=== PATIENT | female | born 1950 | race Caucasian/White ===

== ENCOUNTER → 2016-11-09 | Outpatient (CLI) | payer MEDICARE, OTHER ==
[~2016-11-09] MED LIST: ASPI81TA2 PO; BENZ-16 PO; BUPR150T89 PO; BUSP10TA3 PO; CALC-191 PO; CELE-85 PO; DIVA250T27 PO; DIVA500T55 PO; LISI-126 PO; MAGN400T6 PO; ONDA4TAB10 SL; PANT40TA32 PO; PREN-135 PO; PROP120C PO; RISP2TAB22 PO; SUCR1TAB43 PO; VIT1CAPS5 PO
== END ==
LOC: LAB 09:14
PROVIDERS: ATTEND Nurse Practitioner Psychiatric/Mental Health
DX: Z79.899 Other long term (current) drug therapy (principal)
CPT/HCPCS: 36415; 80164

== ENCOUNTER → 2016-12-07 | Outpatient (CLI) | payer MEDICARE, OTHER ==
[~2016-12-07] VITALS: Ht 160 cm; Wt 61.4 kg
[~2016-12-07] MED LIST changes: +PROM25TA7 PO; +PROMETHAZINE 25 MG INJECTION IV ONE
[2016-12-07] MEDS: NORMAL SALINE 1,000 ML IV SCH ×2 (15:30→16:41)
[2016-12-07 16:42] VITALS: Ht 160 cm; Wt 61.4 kg
[2016-12-07 16:56] VITALS: BP 144/66; PULSE 84; RESP 16; TEMP 97; O2SAT 94
== END ==
LOC: INF.THER 15:11
PROVIDERS: ATTEND Internal Medicine
DX: R11.0 Nausea (principal); E86.0 Dehydration
CPT/HCPCS: 96361; 96374; J2550; J7030

== ENCOUNTER 2016-12-10 11:39 | Emergency (ER) | payer MEDICARE, OTHER ==
[~2016-12-10] VITALS: Ht 160 cm; Wt 62.4 kg
[~2016-12-10 11:39] MED LIST changes: -PROM25TA7 PO; -PROMETHAZINE 25 MG INJECTION IV ONE
[2016-12-10 11:41] VITALS: Ht 160 cm; Wt 62.4 kg
--- OUTSIDE RECORDS SUMMARY | 2016-12-10 11:43 | XMS REPORT | Continuity of Care Document ---
Author Author [facility] Organization [facility] Address Unknown Phone Unavailable Allergies Medications Medication Packaging Start Date Stop Date Route Dosage Sig LIDOCAINE 1% MPF INJ (5ML) VL 01/05/2016 01/04/2017 ID ASDIR MIDAZOLAM 2MG/2ML INJ VL 01/05/2016 01/04/2017 IV ASDIR methylPREDNISolone ACETATE 80MG/1ML INJ VL 01/05/20162016 IT ASDIR fentaNYL 100 MCG/2ML INJ AMP 01/05/2016 01/04/2017 IV ASDIR BUPIVACAINE 0.25% INJ [10 ML] VL 01/05/2016 01/04/2017 IT ASDIR LIDOCAINE 1% MPF INJ (5ML) VL 02/15/2016 02/14/2017 ID ASDIR MIDAZOLAM 2MG/2ML INJ VL 02/15/2016 02/14/2017 IV ASDIR methylPREDNISolone ACETATE 80MG/1ML INJ VL 02/15/20162016 IT ASDIR fentaNYL 100 MCG/2ML INJ AMP 02/15/2016 02/14/2017 IV ASDIR BUPIVACAINE 0.25% INJ [10 ML] VL 02/15/2016 02/14/2017 IT ASDIR Problems Date Dx Coded Attending Type Code Diagnosis Diagnosed By 01/06/2016 MEMO REED DF M54.16 Radiculopathy, lumbar region 02/15/2016 MEMO REED DF 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 Visit Date/Time Discharge Status Pt. Type Provider Facility Loc./Unit Complaint [id number] 03/15/2016 13:48:00 03/15/2016 15: 49:00 DIS Outpatient [facility] PAIN lumbar radiculopathy. [id number] 02/15/2016 12:58:00 02/15/2016 14: 04:00 DIS Outpatient [facility] PAIN NKI,lumbar radiculopathy. [id number] 01/06/2016 08:38:00 01/06/2016 10: 06:00 DIS 24 [facility] PAIN NO KNOWN INJURY,lumbar radiculopathy.
--- NOTE | 2016-12-10 12:11 | ERPDOC ---
Departure Disposition Decision Date: Dec 10, 2016 Disposition Decision Time: 15:29 Disposition: 01 DISCHARGED HOME, SELF-CARE Impression Impression Impression: Primary Impression: Orthostatic hypotension Severity: Moderate Condition: Improved Seen By: Physician only Referrals: ANANT SANCHEZ DO (Family) Patient Instructions: Hypotension (ED) Problems/Meds/Labs Reviewed?: Yes Medications reviewed and manag: Yes Additional Instructions: Follow-up with Dr. Sanchez end of the week Follow up care ordered?: Yes Mental Status: Alert, Oriented HPI - General Medical General Chief Complaint: Palpitations Stated Complaint: ELEVATED HR Time Seen by Provider: 12:11 Source: patient, family Exam Limitations: no limitations HPI - General Medical Initial Comments Patient is a 66-year-old female presents emergency room for evaluation of dizziness elevated heart rate. Patient's been having some oral intake issues, has recently started taking protein shakes. Patient was complaining of some tachycardia in Dr. Sanchez's office last Saturday, was given 2 L of fluid and some Phenergan with improvement of symptoms. Over the weekend patient did well, however today patient stood up and was starting to feel dizzy, checked heart rate with home monitoring got a heart rate in the 120s so decided to present to the ER for evaluation. On arrival patient's only complaint is dizziness on standing Allergies: Coded Allergies: shellfish derived (Verified Allergy, Unknown, HIVES, 12/10/16) Past History Patient Surgical History Per report, she has had cholecystectomy, tonsillectomy, hysterectomy, 2 back fusion surgeries and a kyphoplasty. Past Medical History Metabolic: hypertension GI: GERD Neurological: seizures Psychological: alcohol abuse, bipolar Surgical History General: back, gallbladder, tonsils Reproductive/: hysterectomy Family History Family PMH: FOUND: CHF, COPD, other Vaccines Hx Influenza Vaccination: Yes (06/2016) Hx Pneumococcal Vaccination: Yes (SEP 2015) Social History Smoking Status: Never smoker Does patient use chewing tobac: No Second Hand Exposure: No Substance Use Type: does not use Alcohol Intake: daily Last Drink: prior to arrival Marital Status: Current Occupational Status: retired Advance Directives: Yes Full Code Review of Systems Constitutional Constitutional: appetite decrease, dizziness, weakness, DENIES: chills, fever Eyes Vision: DENIES: double vision, loss of visual gilman ENMT Sinuses: DENIES: congestion, rhinorrhea Mouth/Throat: DENIES: scratchy throat, sore throat Cardiovascular Cardiac: DENIES: chest pain, dyspnea on exertion Rhythm/Rate: tachycardia Pulmonary Respiratory: DENIES: cough, dyspnea, sputum, tachypnea GI Upper Abdomen: DENIES: nausea, pain, vomiting Lower Abdomen: DENIES: constipation, diarrhea, pain Musculoskeletal General: DENIES: cramps, pain, weakness Integumentary Skin: DENIES: color change, itching, rash Endocrine Endocrine: DENIES: heat/cold intolerance Hematologic/Lymphatic Hematologic/Lymphatic: DENIES: anemia Physical Exam General General Nourishment: well nourished, well developed General Body Habitus: well groomed Vitals and Pain First Documented Vital Signs Date Time Temp Pulse Resp B/P Pulse Ox O2 Delivery O2 Flow Rate FiO2 12/10/16 11:41 98.0 98 20 142/70 100 Room Air Weight: Kilograms: Height (feet): 5 Height (inches): 3.00 Triage Pain Scale: RN VS reviewed by Provider: Yes Eyes (brief) Eyes Brief: found: EOMI ENMT (brief) ENMT Brief: FOUND: mucosa moist, normal dentition, NOT FOUND: nasal erythema, pharnyx erythema, tonsillar deviation Neck (brief) Neck: NOT FOUND: adenopathy, spasm, tenderness Respiratory (brief) Respiratory: FOUND: clear all gilman, equal bilaterally, NOT FOUND: rales, wheezes Cardiovascular (brief) Cardiac: FOUND: regular rate, regular rhythm Capillary Refill: <2 sec Abdomen (brief) Abdominal Brief: FOUND: bowel normo active x4, soft, NOT FOUND: distended, tender Lymphatic (brief) Lymphatic Brief: NOT FOUND: adenopathy Musculoskeletal (brief) Musculoskeletal Brief: NOT FOUND: spasm, tenderness Integumentary (brief) Integumentary Brief: FOUND: dry, pink, warm, NOT FOUND: rash Neurologic (brief) Neurological Brief: FOUND: CN w/o gross def to obs, motor-no gross deficits, sensory-no gross deficits Psychiatric (brief) Psychiatric Brief: FOUND: alert, oriented Differential Diagnoses Considering: Hypo/Hyperglycemia, Hypo/Hyperkalemia, Hypo/Hypernatremia, Medication Effect, Metabolic, TIA, UTI Progress Results/Orders Orders Procedure Category Date Status Time EKG EKG 12/10/16 Taken 11:40 Orthostatic Bp/Pulse EDM 12/10/16 Transmitted 12:02 Cbc W/Auto LAB 12/10/16 Complete Diff-Reflex Manual 12:17 Cmp - Comprehensive LAB 12/10/16 Complete Metabolic 12:17 Tsh - Thyroid Stim LAB 12/10/16 Complete Hormone 12:17 Troponin I W LAB 12/10/16 Complete Hemolysis Index 12:17 Magnesium LAB 12/10/16 Complete 12:17 Iv Lock (Ed Only) EDM 12/10/16 Transmitted 12:17 Ua, Dip Wreflex LAB 12/10/16 Complete Micro[employer] & Management And Budget Analyst 12:17 Ct Head W/O Contrast CT 12/10/16 Resulted 12:17 Lr (Lactated Ringers) PHA 12/10/16 Complete 12:30 Normal Saline (Normal PHA 12/10/16 Complete Saline Iv) 14:45 Promethazine PHA 12/10/16 Complete (Phenergan) 15:30 Lab Results Laboratory Tests Test 12/10/16 12:44 12/10/16 13:55 White Blood Count 4.2T/MM3 Red Blood Count 4.26M/MM3 Hemoglobin 12.6GM/DL Hematocrit 38.2% Mean Corpuscular Volume 89.7UM3 Mean Corpuscular Hemoglobin 29.6UUG Mean Corpuscular Hemoglobin Concent 33.0GM/DL RDW Standard Deviation 46.2FL Platelet Count 349T/MM3 Mean Platelet Volume 10.5UM3 Immature Granulocyte % (Auto) 0.2% Neutrophils (%) (Auto) 24.9% Lymphocytes (%) (Auto) 62.4% Monocytes (%) (Auto) 7.7% Eosinophils (%) (Auto) 3.1% Basophils (%) (Auto) 1.7% Absolute Immature Granulocyte (auto 0.01T/MM3 Absolute Neutrophils (auto) 1.0T/MM3 Absolute Lymphocytes (auto) 2.6T/MM3 Absolute Monocytes (auto) 0.3T/MM3 Absolute Eosinophils (auto) 0.1T/MM3 Absolute Basophils (auto) 0.1T/MM3 Turbidity < 20 Sodium Level 139MEQ/L Potassium Level 3.2MEQ/L Chloride Level 99MEQ/L Carbon Dioxide Level 33MEQ/L Anion Gap 7MEQ/L Blood Urea Nitrogen 6.0MG/DL Creatinine 0.7MG/DL Glomerular Filtration Rate Calc 83 BUN/Creatinine Ratio 9RATIO Glucose Level 95MG/DL Calculated Osmolality 266MOSM/KG Calcium Level 9.4MG/DL Magnesium Level 1.5MG/DL Total Bilirubin 0.70MG/DL Icterus Index < 2 Aspartate Amino Transf (AST/SGOT) 77U/L Alanine Aminotransferase (ALT/SGPT) 44U/L Alkaline Phosphatase 88U/L Troponin I < 0.012ng/ml Total Protein 6.5G/DL Albumin 2.8G/DL Globulin 3.7G/DL Albumin/Globulin Ratio 0.8RATIO Thyroid Stimulating Hormone (TSH) 1.94MIU/L Chemistry Specimen Hemolysis < 15 Urine Collection Type Voided-not cc-midstr Urine Color Yellow Urine Turbidity Clear Urine pH 8.5 Urine Specific [place] 1.010 Urine Protein Negative Urine Glucose (UA) Negative Urine Ketones Negative Urine Blood Negative Urine Nitrite Negative Urine Bilirubin Negative Urine Urobilinogen 0.2EU/DL Urine Leukocyte Esterase Negative Urinalysis Comment Microscopic not ind. Medications Current ED Medications Lactated Ringer's 1,000 ml @ 999 mls/hr Q1H1M ONCE IV Last administered on 12:47; Start 12/10/16 at 12:30; Stop 12/10/16 at 13:30; Status DC Sodium Chloride (Normal Saline IV) 1,000 ml @ 999 mls/hr Q1H1M ONCE IV Last administered on 12/10/16 15:11; Start 12/10/16 at 14:45; Stop 12/10/16 at 15:45 ; Status DC Promethazine HCl (Phenergan) 25 mg O ONCE IV Last administered on 12/10/16 15 :22; Start 12/10/16 at 15:30; Stop 12/10/16 at 15:31; Status DC Progress Progress Patient significantly orthostatic on arrival with heart rate increasing to 126 on standing with significant dizziness. Patient given 1 L of LR, Phenergan for nausea. Laboratories otherwise noncontributory, did discuss case with Dr. Sanchez he would recommend a 2nd liter of fluid have patient follow-up with him in the office continue protein shakes. EKG EKG : Rate: >100 Rhythm: sinus [place]: normal QRS: normal Intervals: normal ST/T: non-specific changes Interpreted by: signing physician ALEJANDRO LUTHER MD Dec 10, 2016 12:11
--- OUTSIDE RECORDS SUMMARY | 2016-12-10 12:29 | XMS REPORT | Continuity of Care Document ---
Author Author [facility] Organization [facility] Address Unknown Phone Unavailable Allergies Medications Medication [...] Status Pt. Type Provider Facility Loc./Unit Complaint [id number] 03/15/2016 13:48:00 03/15/2016 15: 49:00 DIS Outpatient [facility] PAIN lumbar radiculopathy. [id number] 02/15/2016 12:58:00 02/15/2016 14: 04:00 DIS Outpatient [facility] PAIN NKI,lumbar radiculopathy. [id number] 01/06/2016 08:38:00 01/06/2016 10: 06:00 DIS 24 [facility] PAIN NO KNOWN INJURY,lumbar radiculopathy.
[2016-12-10] MEDS ORDERED: LR 1,000 ML IV ONE (12:30)
[2016-12-10] MEDS ORDERED: PROM25TA7 PO (12:55)
[2016-12-10 12:59] LABS: BASOPHILS # (AUTO) 0.1 T/MM3 (0-0.2); BASOPHILS % (AUTO) 1.7 % (0-2); EOSINOPHILS # (AUTO) 0.1 T/MM3 (0-0.5); EOSINOPHILS % (AUTO) 3.1 % (0-4); HCT - HEMATOCRIT 38.2 % (36-46); HGB - HEMOGLOBIN 12.6 GM/DL (12-16); IMMATURE GRANULOCYTE # (AUTO) 0.01 T/MM3 (0.00-0.03); IMMATURE GRANULOCYTE % (AUTO) 0.2 % (0.0-0.5); LYMPHOCYTES # (AUTO) 2.6 T/MM3 (1-4.8); LYMPHOCYTES % (AUTO) 62.4 % (23-45); MEAN CORPUSCULAR HGB 29.6 UUG (26-34); MEAN CORPUSCULAR VOLUME 89.7 UM3 (80-100); MEAN PLATELET VOLUME 10.5 UM3 (9.4-12.4); MONOCYTES # (AUTO) 0.3 T/MM3 (0-0.8); MONOCYTES % (AUTO) 7.7 % (0-9.0); NEUTROPHILS % (AUTO) 24.9 % (33-66); RED BLOOD COUNT 4.26 M/MM3 (4.00-5.20); WBC - WHITE BLOOD COUNT 4.2 T/MM3 (4.5-11.0)
[2016-12-10 13:08] LABS: ALBUMIN 2.8 G/DL (3.5-5.0); ALBUMIN/GLOBULIN RATIO 0.8 RATIO (1.1-2.2); ALKALINE PHOSPHATASE 88 U/L (38-126); ALT (SGPT) 44 U/L (9-52); ANION GAP 7 MEQ/L (5-15); AST (SGOT) 77 U/L (14-36); BUN/CREATININE RATIO 9 RATIO (6-26); CALCIUM 9.4 MG/DL (8.4-10.2); CHLORIDE 99 MEQ/L (98-107); CO2 - CARBON DIOXIDE 33 MEQ/L (22-30); CREATININE 0.7 MG/DL (0.7-1.2); GLOMERULAR FILTRATION RATE 83; GLUCOSE 95 MG/DL (65-110); MAGNESIUM 1.5 MG/DL (1.6-2.3); POTASSIUM 3.2 MEQ/L (3.6-5); SODIUM 139 MEQ/L (134-144); TOTAL PROTEIN 6.5 G/DL (6.3-8.2)
--- NOTE | 2016-12-10 13:20 | NUR ---
RADIOLOGY PT TO RADIOLOGY AT THIS TIME.
--- NOTE | 2016-12-10 13:30 | NUR ---
RETURN PT RETURNED FROM RADIOLOGY AT THIS TIME.
--- NOTE | 2016-12-10 13:57 | DI ---
Indication: ITS.REASON: orthostatic hypotension severe dizziness PROCEDURE: CT HEAD W/O CONTRAST: Encounter: Initial Comparison: October 04, 2014 Technique: Axial CT images through the head were performed without contrast. Iterative Reconstruction dose reducing techniques was utilized. FINDINGS: The ventricles are of normal size, shape, and contour for the patient's age. There is mild periventricular white matter disease. The brainstem, cerebellum, and cerebral hemispheres otherwise have a normal morphology and CT attenuation. There is no evidence of midline displacement. No hemorrhage, signs of acute territorial stroke, mass effect, mass lesions, or edema is evident. The visualized portions of the skull base, midface, and calvarium demonstrate no abnormality. The paranasal sinuses are well aerated and free of significant disease. The tympanic and mastoid cavities appear normal. IMPRESSION: 1. Mild periventricular white matter disease. No evidence for acute intracranial process or hemorrhage. .
[2016-12-10 14:01] LABS: BLOOD, URINE NEGATIVE (NEGATIVE); COLOR,URINE YELLOW (YELLOW); LEUKOCYTE ESTERASE ,URINE NEGATIVE (NEGATIVE); NITRITE,URINE NEGATIVE (NEGATIVE); UROBILINOGEN,URINE 0.2 EU/DL (NORMAL)
--- NOTE | 2016-12-10 14:27 | NUR ---
ACTIVITY PT AMBULATORY TO BR WITH STEADY GAIT ACCOMP BY . TOLERATES ACTIVITY WELL.
[2016-12-10 14:43] LABS: THYROID STIM HORMONE-TSH 1.94 MIU/L (0.47-4.68)
[2016-12-10] MEDS ORDERED: NORMAL SALINE 1,000 ML IV ONE (14:45)
--- NOTE | 2016-12-10 15:11 | NUR ---
IV FLUIDS NORMAL SALINE BOLUS STARTED.
--- NOTE | 2016-12-10 15:22 | NUR ---
PHENERGAN PT. REQUESTED PHENERGAN FOR NAUSEA. INFORMED DR. LUTHER AND IT WAS ORDERED AND GIVEN.
[2016-12-10] MEDS ORDERED: PROMETHAZINE 25 MG INJECTION IV ONE (15:30)
[2016-12-10 16:22] VITALS: BP 148/70; PULSE 88; RESP 16; TEMP 98; O2SAT 96
--- NOTE | 2016-12-10 16:22 | NUR ---
DISCHARGE WRITTEN INSTRUCTIONS REVIEWED AND SENT WITH PT. PT VERBALIZES UNDERSTANDING OF DI, DENIES QUESTIONS. PT AMBULATES OUT OF ER WITH STEADY GAIT ACCOMP BY SPOUSE AT THIS TIME.
== END 2016-12-10 16:22 | disposition home or self-care (01) ==
LOC: ED 11:39
DX: I95.1 Orthostatic hypotension (principal); R11.0 Nausea; I10 Essential (primary) hypertension
CPT/HCPCS: 36000; 70450; 80053; 81003; 83735; 84443; 84484; 85025; 93005; 96361; 96374; 99284; J2550; J7030; J7120

== ENCOUNTER 2018-02-22 16:46 | Inpatient (IN) ==
--- NOTE | 2018-02-22 17:07 | Emergency Department Report ---
Abdominal Pain HPI - General Chief Complaint: Abdominal Pain <Domingo Luke - 02/22/18 20:03> Stated Complaint: severe stomach pain <Domingo Luke - 02/22/18 20:03> Source: patient <Candy Jimenes 02/22/18 17:07> Mode of arrival: ambulatory <Candy Jimenes 02/22/18 17:07> Limitations: no limitations <Candy Jimenes 02/22/18 17:07> - History of Present Illness HPI narrative: PT presents with diffuse abdominal pain for about 3 days as well as nausea and dizziness when she stands. She denies diarrhea or actual vomiting as well as fever, chest pain, SOA, diaphoresis, or urinary symptoms. Pt frequently refers to a history of "twisted colon" but states this feels more like when she had pancreatitis which was in October of this year. <Candy Jimenes 02/22/18 17:54> MD complaint: abdominal pain <Candy Jimenes 02/22/18 17:07> Consistency: constant <Candy Jimenes 02/22/18 17:07> Severity scale (1-10): 4 <Candy Jimenes Wolfgang 02/22/18 17:54> Associated symptoms: other (low back pain) <Candy Jimenes 02/22/18 17: 54> - Related Data Home Medications Medication Instructions Recorded Confirmed zaleplon 10 mg capsule 10 mg PO HS 30 Days #30 cap 03/04/17 02/22/18 Aspirin [Adult Aspirin Regimen] 81 mg PO DAILY 02/22/18 02/22/18 Benztropine [Cogentin] 1 mg PO BID 02/22/18 02/22/18 Calcium 600 + D [Caltrate + D] 1 tab PO DAILY 02/22/18 02/22/18 Celecoxib [Celecoxib] 200 mg PO DAILY 02/22/18 02/22/18 Hydrocodone/APAP 10/325 [[place] 1 tab PO Q6H PRN 02/22/18 02/22/18 10/325] Ibuprofen 400 mg PO Q4H PRN 02/22/18 02/22/18 Lisinopril [Prinivil] 10 mg PO DAILY 02/22/18 02/22/18 Memantine HCl [Memantine HCl] 5 mg PO BID 02/22/18 02/22/18 Vits #93/Iron Fum/FA 1 each PO DAILY 02/22/18 02/22/18 [ Formula Tablet] Promethazine Tab [Phenergan Tab] 25 mg PO Q6H PRN 02/22/18 02/22/18 Sucralfate [Carafate] 1 gm PO HS 02/22/18 02/22/18 Vit C/E/Zn/Coppr/Lutein/Zeaxan 1 each PO DAILY 02/22/18 02/22/18 [Preservision Areds 2 Softgel] buPROPion HCl [Bupropion HCl Sr] 150 mg PO BID 02/22/18 02/22/18 clonazePAM [Clonazepam] 0.5 mg PO QID PRN 02/22/18 02/22/18 <Domingo Luke 02/22/18 20:03> Allergies Allergy/AdvReac Type Severity Reaction Status Date / Time shellfish derived Allergy Unknown HIVES Verified 02/22/18 17:03 <Domingo Luke 02/22/18 20:03> Review of Systems All systems: reviewed and negative except as stated <Candy Jimenes 17:54> Constitutional: Reports: as per HPI <Candy Jimenes 02/22/18 17:54> Cardiovascular: Reports: as per HPI <Candy Jimenes 02/22/18 17:54> Respiratory: Reports: as per HPI <Candy Jimenes 02/22/18 17:54> Gastrointestinal: Reports: as per HPI <Candy Jimenes 02/22/18 17:54> Genitourinary: Reports: as per HPI <Candy Jimenes 02/22/18 17:54> Musculoskeletal: Reports: as per HPI <Candy Jimenes 02/22/18 17:54> FOR[facility]LY [facility] Patient Stated Medical History Macular Degeneration Yes Hypertension Yes Sleep Apnea No Gastroesophageal Reflux Yes Disease Other GI Yes: CONSTIPATION pancreatitis barretts esophagus Osteoarthritis Yes Anesthesia Reactions Yes: NAUSEA Blood Transfusions Yes Bipolar Disorder Yes Depression Yes Post Traumatic Stress Disorder Yes Other Reproductive Yes: breast augmentation <Domingo Luke 02/22/18 20:03> Patient Stated Medical History Macular Degeneration Yes Hypertension Yes Sleep Apnea No Gastroesophageal Reflux Yes Disease Other GI Yes: CONSTIPATION pancreatitis barretts esophagus Osteoarthritis Yes Anesthesia Reactions Yes: NAUSEA Blood Transfusions Yes Bipolar Disorder Yes Depression Yes Post Traumatic Stress Disorder Yes Other Reproductive Yes: breast augmentation <Candy Jimenes - 02/22/18 17:07> Surgical History: 1. Tonsillectomy when 1 years old somewhere in [place]. 2. Bilateral breast implants in 1972 at [place], [place]. 3. The patient states that she underwent operations for revision of the breast implants at least six times shortly after they were put in. These revision operations were performed in [place], [place]. The patient had scar tissue around the implants at this time. 4. Diagnostic laparoscopy with vaginal hysterectomy in 1986 at [place]. The patient states that the diagnostic laparoscopy was performed to see if the ovaries looked normal. They did look normal at diagnostic laparoscopy. The uterus was then removed at vaginal hysterectomy and the ovaries left in place. 5. Revision of breast implants in 1988 in [place]. One breast implant was ruptured which led to this operation. 6. Esophagogastroduodenoscopy and colonoscopy in 1989 or 1990 at [place]. The patient states that the duodenal ulcer was found at esophagogastroduodenoscopy at this time. 7. Total colonoscopy on 12/11/[address] Verdugo at [facility] at [place], [place]. The only thing found at this time was some internal hemorrhoids. Postoperative diagnoses were positive family history of colon carcinoma, chronic constipation and internal hemorrhoids. 8. Esophagogastroduodenoscopy on 10/07/[address] Verdugo at [facility] at [place], [place]. Findings were normal at the upper gastrointestinal tract at this time. 9. Complete anterior discectomy and decompression of the spinal canal, anterior spinal fusion and posterior spinal fusion on 08/24/[address] Estevez at [facility] at [place], [place]. Postoperative diagnosis was internal disc disruption at L3-4 and L4-5. Discharge diagnoses were L3-4 and L4-5 degenerative disc disease, acute blood loss anemia and anxiety disorder. 10. Repair of small incarcerated incisional hernia at upper abdomen on 03/10/[address] Verdugo at [place], [place]. 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 11. Reduction of vertebral compression fracture with balloon kyphoplasty at L1 and L2, internal fixation of vertebral compression fracture with methyl methacrylate at L1 and L2 and use of intraoperative fluoroscopy on 06/14/[address] Herbert Estevez at [facility] at [place], [place]. Postoperative diagnosis was vertebral fracture at L1 and L2. 12. Total colonoscopy on 06/17/[address] Verdugo at [facility] at [place], [place]. Discharge diagnoses were positive family history of colon carcinoma and internal and external hemorrhoids. 13. Repair of umbilical hernia on 12/02/[address] Verdugo at [facility] at [place], [place]. Discharge diagnosis was umbilical hernia. 14. Esophagogastroduodenoscopy with biopsies on 08/04/[address] Ruano at [facility] at [place], [place]. Diagnoses after the procedure were reflux esophagitis, watermelon stomach versus portal gastropathy , gastritis, antral ulcer and mild duodenitis. Biopsies performed at the stomach showed mild chronic gastritis. The pathology report diagnosis on biopsy of the antral gastric ulcer was chronic gastritis with superficial erosion. Biopsies of the gastroesophageal junction showed Reyes's esophagitis without dysplasia. 15. Laparoscopic cholecystectomy, intraoperative cholangiograms and needle biopsies of the liver on 10/26/[address] Verdugo at [facility] at [place], [place]. Pathology report diagnosis on the gallbladder was chornic cholecystitis. Pathology report on needle biopsies of the liver was mild periportal fibrosis. 16. Cardiac catheterization on 09/05/[address] Green at [facility] at [place], [place]. One postoperative diagnosis was no significant coronary obstructive lesions. Another postoperative diagnosis was normal left ventricular systolic function. 17. Transesophageal echocardiogram on 09/05/[address] Green at [place], [place]. This procedure did show mild mitral regurgitation and mild tricupsid regurgitation. 18. Esophagogastroduodenoscopy on 10/11/[address] Ruano at [place], [place]. Postoperative diagnoses were mild gastritis at the body of the stomach, hyperplastic polyps in the esophagus and small hiatal hernia. 19. Esophagogastoduodenoscopy with biopsies on 08/29/[address] Ruano at [facility] at [place], [place]. Postoperative Diagnoses were esophageal ulcer at distal esophagus, hiatal hernia and gastritis at body and antrum of stomach. Biopsies of the gastroesophageal junction showed mild reflux esophagitis. There was no gastric type mucosa present. There was no dysplasia present. Biopsies performed at the body and antrum of the stomach showed no abnormalities. 20. Esophagogastroduodenoscopy with biopsies on 09/03/[address] Ruano at [facility] at [place], [place]. Postoperative diagnoses were reflux esophagitis with areas of Reyes's change, small hiatal hernia and mild gastritis. Biopsies performed at the gastroesophageal junction showed reflux esophagitis. 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 There was no dysplasia. 21. Total colonoscopy on 09/26/[address] Verdugo at [facility] at [place], [place]. Postoperative diagnoses were positive family history of colon carcinoma, chronic constipation and internal and external hemorrhoids. The father of this patient has had colon carcinoma. 22. Cervical spine fusion at C3-5 on 08/13/[address] Mckeon at the [facility] at [place], [place]. 23. Esophagogastroduodenoscopy with biopsies on 12/30/[address] Ruano at [facility] at [place], [place]. 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 There was no dysplasia. 24. Esophagogastroduodenoscopy with biopsies on 12/22/[address] Ruano at [facility] at [place], [place]. Postoperative diagnoses was reflux esophagitis. Biopsies performed at the duodenum showed only some patchy mild intraepithelial lymphocytosis. Biopsies performed at the gastroesophageal junction showed chronic esophagitis with focal mucosal erosion. There was intestinal metaplasia compatible with Reyes's epithelium. 25. Esophagogastroduodenoscopy with biopsies on 01/11/[address] Ruano at [facility] at [place], [place]. Postoperative diagnoses showed reflux esophagitis, small axial type hiatal hernia and a few erosions at the level of the duodenum. Biopsies at the distal esophagus showed Reyes's epithelium. There was no dysplasia. There were no significant eosinophilic inflammatory infiltrates identified. 26. Radiofrequency ablation at back on 05/10/[address] Hope at the [facility] at [place], [place]. The patient has had other previous hospitalizations as follows: 1. Hospitalized in 1995 in [place] for treatment of major depression. 2. Hospitalized in May 2003 at [facility] at [place], [place]. Discharge diagnoses for this hospitalization were bipolar affective disorder, suicide attempt, medication overdose, chronic back pain, tobacco use, menopausal and hypertension. 3. Hospitalized in May 2003 and June 2003 at [facility] at [facility] at [place], [place] for treatment of bipolar disorder following a suicide attempt in May 2003. 4. The inpatient admission history and physical examination report from [place], [place] on 08/25/03 states that the patient had two prior hospitalizations at [place], as well as partial hospital stays before 08/25/03. 5. Inpatient hospitalization from 08/25/03 to 08/30/03 at [place], [place]. 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 6. Hospitalized in May 2004 at [facility] at [place], [place]. This was for a problem with alcohol. 7. Hospitalized in November 2004 at [place], [place]. Discharge diagnoses were severe mixed bipolar 1 disorder with psychotic features, panic disorder without agoraphobia and substance abuse. 8. Hospitalized in January 2005 at [place], [place]. Discharge diagnoses were severe mixed bipolar 1 disorder with psychotic features, panic disorder without agoraphobia and substance abuse. 9. Hospitalized from 08/02/06 to 08/07/06 at [place], [place]. Diagnoses for this hospitalization were severe bipolar disorder, depressed without psychotic features, panic disorder without agoraphobia and alcohol dependence. 10. Hospitalized from 09/01/07 to 09/15/07 at [place], [place]. Discharge diagnoses were severe mixed bipolar 1 disorder without psychotic features, panic disorder without agoraphobia and alcohol dependence. <Candy Jimenes - 02/22/18 17:07> Family History: Family History Father Cancer of colon COPD (chronic obstructive pulmonary disease) Cancer of prostate <Domingo Luke Laurie Goss 02/22/18 20:03> Family History Father Cancer of colon COPD (chronic obstructive pulmonary disease) Cancer of prostate <Candy Jimenes 02/22/18 17:07> - Social History Smoking status: Former smoker <Candy Jimenes 02/22/18 17:07> second hand exposure: No <YudyCandy Bender 02/22/18 17:07> Substance use type: does not use <Candy Jimenes 02/22/18 17:07> Alcohol intake: former <YudyCandy Goss 02/22/18 17:07> Alcohol intake frequency: does not drink <JosiasmagaliCandy Goss 02/22/18 17:07> Household members: spouse <JosiasmagaliCandy 02/22/18 17:07> Current occupational status: retired <YudyCandy Bender 02/22/18 17:07> Does patient use chewing tobacco?: No <LaquitadraganmagaliCandy Bender 02/22/18 17:07> Physical Exam - Limitations Limitations: no limitations <JosiasmagaliCandy 02/22/18 17:54> - General General appearance: alert, in no apparent distress <YudyCandy Goss 02/22 17:54> - Normal Exams: Head:: Normocephalic without trauma <YudyCandy Goss 02/22/18 17:54> Cardiovascular:: Regular rate and rhythm, without murmur or gallop, Pulses 2+ all extremities, capillary refill, <2 seconds all extremities <Laquitanicole Candy Goss 02/22/18 17:54> Abdomen:: Bowel sounds positive, soft, non-tender, non-distended <Yudy Candy R Wolfgang 02/22/18 17:54> Musculoskeletal:: No tenderness, or deformity noted, good range of motion, all extremities <YudyCandyrebekah Goss 02/22/18 17:54> Integumentary:: No rashes <YudyCandyrebekah Goss 02/22/18 17:54> Neurological:: Patient is alert, and oriented, cranial nerves, motor/sensory/ cerebellar, exams w/o gross deficits, to observation <Candy Jimenes - 17:54> Psychiatric:: Patient exhibits, appropriate attention, emotion and affect < Candy Jimenes R - 02/22/18 17:54> Course Vital Signs Temperature 98.6 F 02/22/18 16:50 Pulse Rate 121 H 02/22/18 16:50 Respiratory Rate 18 02/22/18 16:50 Blood Pressure 127/67 02/22/18 16:50 Pulse Oximetry 91 02/22/18 16:50 Temperature 98.6 F 02/22/18 16:51 Pulse Rate 104 H 02/22/18 19:30 Respiratory Rate 18 02/22/18 18:20 Blood Pressure 93/62 02/22/18 18:30 Pulse Oximetry 89 L 02/22/18 19:30 <TiDomingo E - 02/22/18 20:03> Vital Signs Temperature 98.6 F 02/22/18 16:50 Pulse Rate 121 H 02/22/18 16:50 Respiratory Rate 18 02/22/18 16:50 Blood Pressure 127/67 02/22/18 16:50 Pulse Oximetry 91 02/22/18 16:50 Temperature 98.6 F 02/22/18 16:51 Pulse Rate 121 H 02/22/18 16:51 Respiratory Rate 18 02/22/18 16:51 Blood Pressure 127/67 02/22/18 16:51 Pulse Oximetry 91 02/22/18 16:51 <Candy Jimenes R - 02/22/18 17:07> Abdominal Pain - MDM Narrative Medical decision making narrative: Patient signed out with pending CT scan abdomen. CT showed possible small bowel obstruction versus partial small bowel obstruction as well as possible pseudocyst based on history of pancreatitis. Lipase returns at 23, other labs are appropriate. Patient's abdomen is distended. She does refuse NG tube stating that she could not tolerate it previously. Explained to her that we may be able to avoid a surgery by using an NG tube, also discussed with hospitalist who recommended NG tube placement. Patient is aware that both of us are recommending this. He did nothing by mouth with IV fluids via hospitalist. Dr. Verdugo is her general surgeon and is aware of her hospital admission. Over the weekend Dr. Moise is covering. <Domingo Luke - 02/22/18 20:03> - Differential Diagnosis Differential diagnosis: Likely: abdominal pain, constipation, diverticulitis, gastroenteritis, pancreatitis, small bowel obstruction <JosiasmagaliCandy R - 02/22/18 17:54> - Medical Records Attestation: I reviewed the patient's medical records. <Domingo Luke - 02/22 20:03> - Lab Data Attestation: I reviewed the patient's lab results. <Domingo Luke - 02/22/18 20:03> Result diagrams: 02/22/18 17:21 02/22/18 17:21 <Domingo Luke - 02/22/18 20:03> Lab Results 02/22/18 02/22/18 02/22/18 Range/Units 17:12 17:12 17:21 WBC 10.8 (4.5-11.0) T/MM3 RBC 4.44 (4.00-5.20) M/MM3 Hgb 13.0 (12-16) GM/DL Hct 40.2 (36-46) % MCV 90.5 (80-100) UM3 MCH 29.3 (26-34) UUG MCHC 32.3 (31-37) GM/DL RDW Std Deviation 46.2 (36.9-50.2) FL Plt Count 443 H (130-400) T/MM3 MPV 10.1 (9.4-12.4) UM3 Immature Gran % (Auto) 0.2 (0.0-0.5) % Neut % (Auto) 68.4 H (33-66) % Lymph % (Auto) 22.9 L (23-45) % Saline % (Auto) 7.0 (0-9.0) % Eos % (Auto) 1.3 (0-4) % Baso % (Auto) 0.2 (0-2) % Neut # (Auto) 7.4 (1.8-7.7) T/MM3 Lymph # (Auto) 2.5 (1-4.8) T/MM3 Saline # (Auto) 0.8 (0-0.8) T/MM3 Eos # (Auto) 0.1 (0-0.5) T/MM3 Baso # (Auto) 0.0 (0-0.2) T/MM3 Abs Immat Gran (auto) 0.02 (0.00-0.03) T/MM3 Turbidity (0-20) Sodium (136-146) MEQ/L Potassium (3.6-5) MEQ/L Chloride (98-107) MEQ/L Carbon Dioxide (22-30) MEQ/L Anion Gap (5-15) meq/L BUN (7-17) MG/DL Creatinine (0.7-1.2) mg/dL GFR Calculation BUN/Creatinine Ratio (6-26) RATIO Glucose (65-110) MG/DL Calculated Osmolality (261-280) MOSM/KG Calcium (8.4-10.2) MG/DL Total Bilirubin (0.20-1.30) MG/DL Icterus Index (0-7) AST (14-36) U/L ALT (1-35) U/L Alkaline Phosphatase (38-126) U/L Total Protein (6.3-8.2) g/dL Albumin (3.5-5.0) g/dL Globulin (2.4-3.6) G/DL Albumin/Globulin Ratio (1.1-2.2) RATIO Lipase 24 (23-300) U/L Specimen Hemolysis (0-25) Ur Collection Type Urine, void-cc/notcc Urine Color Yellow (YELLOW) Urine Clarity Clear Urine pH 6.0 (5.0-8.0) Ur Specific [place] 1.010 L (1.015-1.025) Urine Protein Negative (NEGATIVE) Urine Glucose (UA) Negative (NEGATIVE) Urine Ketones Negative (NEGATIVE) Urine Occult Blood Negative (NEGATIVE) Urine Nitrate Negative (NEGATIVE) Urine Bilirubin Negative (NEGATIVE) Urine Urobilinogen 0.2 (NORMAL) EU/DL Ur Leukocyte Esterase Trace A (NEGATIVE) Urinalysis Comment Microscopic not ind. 02/22/18 Range/Units 17:21 WBC (4.5-11.0) T/MM3 RBC (4.00-5.20) M/MM3 Hgb (12-16) GM/DL Hct (36-46) % MCV (80-100) UM3 MCH (26-34) UUG MCHC (31-37) GM/DL RDW Std Deviation (36.9-50.2) FL Plt Count (130-400) T/MM3 MPV (9.4-12.4) UM3 Immature Gran % (Auto) (0.0-0.5) % Neut % (Auto) (33-66) % Lymph % (Auto) (23-45) % Saline % (Auto) (0-9.0) % Eos % (Auto) (0-4) % Baso % (Auto) (0-2) % Neut # (Auto) (1.8-7.7) T/MM3 Lymph # (Auto) (1-4.8) T/MM3 Saline # (Auto) (0-0.8) T/MM3 Eos # (Auto) (0-0.5) T/MM3 Baso # (Auto) (0-0.2) T/MM3 Abs Immat Gran (auto) (0.00-0.03) T/MM3 Turbidity < 20 (0-20) Sodium 138 (136-146) MEQ/L Potassium 4.1 (3.6-5) MEQ/L Chloride 96 L (98-107) MEQ/L Carbon Dioxide 29 (22-30) MEQ/L Anion Gap 13 (5-15) meq/L BUN 14.0 (7-17) MG/DL Creatinine 1.3 H (0.7-1.2) mg/dL GFR Calculation 41 BUN/Creatinine Ratio 11 (6-26) RATIO Glucose 111 H (65-110) MG/DL Calculated Osmolality 268 (261-280) MOSM/KG Calcium 10.7 H (8.4-10.2) MG/DL Total Bilirubin 0.60 (0.20-1.30) MG/DL Icterus Index < 2 (0-7) AST 34 (14-36) U/L ALT 18 (1-35) U/L Alkaline Phosphatase 135 H (38-126) U/L Total Protein 8.5 H (6.3-8.2) g/dL Albumin 4.5 (3.5-5.0) g/dL Globulin 4.0 H (2.4-3.6) G/DL Albumin/Globulin Ratio 1.1 (1.1-2.2) RATIO Lipase (23-300) U/L Specimen Hemolysis < 15 (0-25) Ur Collection Type Urine Color (YELLOW) Urine Clarity Urine pH (5.0-8.0) Ur Specific [place] (1.015-1.025) Urine Protein (NEGATIVE) Urine Glucose (UA) (NEGATIVE) Urine Ketones (NEGATIVE) Urine Occult Blood (NEGATIVE) Urine Nitrate (NEGATIVE) Urine Bilirubin (NEGATIVE) Urine Urobilinogen (NORMAL) EU/DL Ur Leukocyte Esterase (NEGATIVE) Urinalysis Comment <Domingo Luke 02/22/18 20:03> - Radiology Data Attestation: I reviewed the patient's radiology results. <Domingo Luke 20:03> Disposition Clinical Impression: Abdominal pain <Domingo Luke 02/22/18 20:03> Disposition: 02 To [facility] Acute Care <Domingo Luke 02/22/18 20:03> Condition: Stable <Domingo Luke 02/22/18 20:03> Instructions: <Domingo Luke 02/22/18 20:03> Prescriptions: No Action Calcium 600 + D [Caltrate + D] 1 tab PO DAILY Promethazine Tab [Phenergan Tab] 25 mg PO Q6H PRN PRN Reason: Nausea Celecoxib [Celecoxib] 200 mg PO DAILY Memantine HCl [Memantine HCl] 5 mg PO BID buPROPion HCl [Bupropion HCl Sr] 150 mg PO BID Vit C/E/Zn/Coppr/Lutein/Zeaxan [Preservision Areds 2 Softgel] 1 each PO DAILY Vits #93/Iron Fum/FA [ Formula Tablet] 1 each PO DAILY Sucralfate [Carafate] 1 gm PO HS Lisinopril [Prinivil] 10 mg PO DAILY Ibuprofen 400 mg PO Q4H PRN PRN Reason: Pain clonazePAM [Clonazepam] 0.5 mg PO QID PRN PRN Reason: Anxiety Aspirin [Adult Aspirin Regimen] 81 mg PO DAILY Benztropine [Cogentin] 1 mg PO BID Hydrocodone/APAP 10/325 [[place]wansea 10/325] 1 tab PO Q6H PRN PRN Reason: Pain zaleplon 10 mg capsule 10 mg PO HS 30 Days #30 cap <Domingo Luke 20:03> Referrals: Franklyn Bolton MD [Primary Care Provider] - Ana Paz DO [Physician] - <Domingo Luke - 02/22/18 20:03> Forms: <Domingo Luke - 02/22/18 20:03> Time of Disposition: 20:03 <Domingo Luke - 02/22/18 20:03> - Seen By: physician, midlevel and physician <Domingo Luke - 02/22/18 20:03>
[2018-02-22] MEDS ORDERED: MORPHINE SULFATE 2mg INJECTION IVP ONE (17:37)
[2018-02-22] MEDS ORDERED: METOCLOPRAMIDE 10mg/2ml INJECTION IVP ONE (17:37)
[2018-02-22] MEDS ORDERED: IOHEXOL 300mg/ml 75ml INJECTION ONE (17:47)
[2018-02-22] MEDS ORDERED: SALINE FLUSH 10ml SYRINGE ONE (17:47)
[2018-02-22] MEDS: SALINE FLUSH 10ml SYRINGE IVF PRN ×2 (18:12→19:16)
[2018-02-22] MEDS ORDERED: KETOROLAC 30 MG/ML INJECTION IVP ONE (19:05)
[2018-02-22] MEDS ORDERED: MORPHINE SULFATE 2mg INJECTION IVP PRN (21:36)
[2018-02-22] MEDS ORDERED: ONDANSETRON 4 MG/2 ML INJECTION IVP PRN (21:36)
[2018-02-22] MEDS: LR 1,000 ML IV SCH (22:09)
--- NOTE | 2018-02-22 22:33 | History & Physical Report ---
History of Present Illness Date: 02/22/18 Chief complaint: abdominal pain HPI: The pt presents to the ER with a 3 day hx of generalized abdominal pain, constant, sharp, nonradiating, she was able to eat up until yesterday she developed severe nausea yesterday, last BM was last night and adeline. no emesis, hemetemesis, melana, diarrhea. The pt had a bowel resection due to volvulus in . Review of Systems - Constitutional Constitutional: Present: as per HPI, weakness. Absent: fever(s), increased appetite - Cardiovascular Cardiovascular: Absent: chest pain - Gastrointestinal Gastrointestinal: Present: abdominal pain, nausea. Absent: diarrhea, melena, vomiting - Musculoskeletal Musculoskeletal: Present: back pain, limited range of motion Past Medical History Surgical History: 1. Tonsillectomy when 1 years old somewhere in [place]. 2. Bilateral breast implants in 1972 at [place], [place]. 3. The patient states that she underwent operations for revision of the breast implants at least six times shortly after they were put in. These revision operations were performed in [place], [place]. The patient had scar tissue around the implants at this time. 4. Diagnostic laparoscopy with vaginal hysterectomy in 1986 at [place]. The patient states that the diagnostic laparoscopy was performed to see if the ovaries looked normal. They did look normal at diagnostic laparoscopy. The uterus was then removed at vaginal hysterectomy and the ovaries left in place. 5. Revision of breast implants in 1988 in [place]. One breast implant was ruptured which led to this operation. 6. Esophagogastroduodenoscopy and colonoscopy in 1989 or 1990 at [place]. The patient states that the duodenal ulcer was found at esophagogastroduodenoscopy at this time. 7. Total colonoscopy on 12/11/[address] Verdugo at [facility] at [place], [place]. The only thing found at this time was some internal hemorrhoids. Postoperative diagnoses were positive family history of colon carcinoma, chronic constipation and internal hemorrhoids. 8. Esophagogastroduodenoscopy on 10/07/[address] Verdugo at [facility] at [place], [place]. Findings were normal at the upper gastrointestinal tract at this time. 9. Complete anterior discectomy and decompression of the spinal canal, anterior spinal fusion and posterior spinal fusion on 08/24/[address] Estevez at [facility] at [place], [place]. Postoperative diagnosis was internal disc disruption at L3-4 and L4-5. Discharge diagnoses were L3-4 and L4-5 degenerative disc disease, acute blood loss anemia and anxiety disorder. 10. Repair of small incarcerated incisional hernia at upper abdomen on 03/10/[address] Verdugo at [facility] at [place], [place]. 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 11. Reduction of vertebral compression fracture with balloon kyphoplasty at L1 and L2, internal fixation of vertebral compression fracture with methyl methacrylate at L1 and L2 and use of intraoperative fluoroscopy on 06/14/[address] Herbert Estevez at [facility] at [place], [place]. Postoperative diagnosis was vertebral fracture at L1 and L2. 12. Total colonoscopy on 06/17/[address] Verdugo at [place], [place]. Discharge diagnoses were positive family history of colon carcinoma and internal and external hemorrhoids. 13. Repair of umbilical hernia on 12/02/[address] Verdugo at [place], [place]. Discharge diagnosis was umbilical hernia. 14. Esophagogastroduodenoscopy with biopsies on 08/04/[address] Ruano at [facility] at [place], [place]. Diagnoses after the procedure were reflux esophagitis, watermelon stomach versus portal gastropathy , gastritis, antral ulcer and mild duodenitis. Biopsies performed at the stomach showed mild chronic gastritis. The pathology report diagnosis on biopsy of the antral gastric ulcer was chronic gastritis with superficial erosion. Biopsies of the gastroesophageal junction showed Reyes's esophagitis without dysplasia. 15. Laparoscopic cholecystectomy, intraoperative cholangiograms and needle biopsies of the liver on 10/26/[address] Verdugo at [place], [place]. Pathology report diagnosis on the gallbladder was chornic cholecystitis. Pathology report on needle biopsies of the liver was mild periportal fibrosis. 16. Cardiac catheterization on 09/05/[address] Green at [place], [place]. One postoperative diagnosis was no significant coronary obstructive lesions. Another postoperative diagnosis was normal left ventricular systolic function. 17. Transesophageal echocardiogram on 09/05/[address] Green at [facility] at [place], [place]. This procedure did show mild mitral regurgitation and mild tricupsid regurgitation. 18. Esophagogastroduodenoscopy on 10/11/[address] Ruano at [facility] at [place], [place]. Postoperative diagnoses were mild gastritis at the body of the stomach, hyperplastic polyps in the esophagus and small hiatal hernia. 19. Esophagogastoduodenoscopy with biopsies on 08/29/[address] Ruano at [facility] at [place], [place]. Postoperative Diagnoses were esophageal ulcer at distal esophagus, hiatal hernia and gastritis at body and antrum of stomach. Biopsies of the gastroesophageal junction showed mild reflux esophagitis. There was no gastric type mucosa present. There was no dysplasia present. Biopsies performed at the body and antrum of the stomach showed no abnormalities. 20. Esophagogastroduodenoscopy with biopsies on 09/03/[address] Ruano at [facility] at [place], [place]. Postoperative diagnoses were reflux esophagitis with areas of Reyes's change, small hiatal hernia and mild gastritis. Biopsies performed at the gastroesophageal junction showed reflux esophagitis. 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 There was no dysplasia. 21. Total colonoscopy on 09/26/[address] Verdugo at [facility] at [place], [place]. Postoperative diagnoses were positive family history of colon carcinoma, chronic constipation and internal and external hemorrhoids. The father of this patient has had colon carcinoma. 22. Cervical spine fusion at C3-5 on 08/13/[address] Mckeon at the [facility] at [place], [place]. 23. Esophagogastroduodenoscopy with biopsies on 12/30/[address] Ruano at [facility] at [place], [place]. 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 There was no dysplasia. 24. Esophagogastroduodenoscopy with biopsies on 12/22/[address] Ruano at [facility] at [place], [place]. Postoperative diagnoses was reflux esophagitis. Biopsies performed at the duodenum showed only some patchy mild intraepithelial lymphocytosis. Biopsies performed at the gastroesophageal junction showed chronic esophagitis with focal mucosal erosion. There was intestinal metaplasia compatible with Reyes's epithelium. 25. Esophagogastroduodenoscopy with biopsies on 01/11/[address] Ruano at [facility] at [place], [place]. Postoperative diagnoses showed reflux esophagitis, small axial type hiatal hernia and a few erosions at the level of the duodenum. Biopsies at the distal esophagus showed Reyse's epithelium. There was no dysplasia. There were no significant eosinophilic inflammatory infiltrates identified. 26. Radiofrequency ablation at back on 05/10/[address] Hope at the [facility] at [place], [place]. The patient has had other previous hospitalizations as follows: 1. Hospitalized in 1995 in [place] for treatment of major depression. 2. Hospitalized in May 2003 at [facility] at [place], [place]. Discharge diagnoses for this hospitalization were bipolar affective disorder, suicide attempt, medication overdose, chronic back pain, tobacco use, menopausal and hypertension. 3. Hospitalized in May 2003 and June 2003 at [facility] at [place], [place] for treatment of bipolar disorder following a suicide attempt in May 2003. 4. The inpatient admission history and physical examination report from [facility] at [place], [place] on 08/25/03 states that the patient had two prior hospitalizations at [facility], as well as partial hospital stays before 08/25/03. 5. Inpatient hospitalization from 08/25/03 to 08/30/03 at [facility] at [place], [place]. 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 6. Hospitalized in May 2004 at [facility] at [place], [place]. This was for a problem with alcohol. 7. Hospitalized in November 2004 at [place], [place]. Discharge diagnoses were severe mixed bipolar 1 disorder with psychotic features, panic disorder without agoraphobia and substance abuse. 8. Hospitalized in January 2005 at [facility] at [place], [place]. Discharge diagnoses were severe mixed bipolar 1 disorder with psychotic features, panic disorder without agoraphobia and substance abuse. 9. Hospitalized from 08/02/06 to 08/07/06 at [place], [place]. Diagnoses for this hospitalization were severe bipolar disorder, depressed without psychotic features, panic disorder without agoraphobia and alcohol dependence. 10. Hospitalized from 09/01/07 to 09/15/07 at [place], [place]. Discharge diagnoses were severe mixed bipolar 1 disorder without psychotic features, panic disorder without agoraphobia and alcohol dependence. Family History: Family History Father Cancer of colon COPD (chronic obstructive pulmonary disease) Cancer of prostate Family History: As Above - Social History Smoking status: Former smoker Substance use type: does not use Alcohol intake frequency: former alcohol drinker Housing: apartment Household members: none Medications Home Medications Medication Instructions Recorded Confirmed Type zaleplon 10 mg capsule 10 mg PO HS 30 Days #30 cap 03/04/17 02/22/18 History Aspirin [Adult Aspirin Regimen] 81 mg PO DAILY 02/22/18 02/22/18 History Benztropine [Cogentin] 1 mg PO BID 02/22/18 02/22/18 History Calcium 600 + D [Caltrate + D] 1 tab PO DAILY 02/22/18 02/22/18 History Celecoxib [Celecoxib] 200 mg PO DAILY 02/22/18 02/22/18 History Hydrocodone/APAP 10/325 [[place] 1 tab PO Q6H PRN 02/22/18 02/22/18 History 10/325] Ibuprofen 400 mg PO Q4H PRN 02/22/18 02/22/18 History Lisinopril [Prinivil] 10 mg PO DAILY 02/22/18 02/22/18 History Memantine HCl [Memantine HCl] 5 mg PO BID 02/22/18 02/22/18 History Vits #93/Iron Fum/FA 1 each PO DAILY 02/22/18 02/22/18 History [ Formula Tablet] Promethazine Tab [Phenergan Tab] 25 mg PO Q6H PRN 02/22/18 02/22/18 History Sucralfate [Carafate] 1 gm PO HS 02/22/18 02/22/18 History Vit C/E/Zn/Coppr/Lutein/Zeaxan 1 each PO DAILY 02/22/18 02/22/18 History [Preservision Areds 2 Softgel] buPROPion HCl [Bupropion HCl Sr] 150 mg PO BID 02/22/18 02/22/18 History clonazePAM [Clonazepam] 0.5 mg PO QID PRN 02/22/18 02/22/18 History Allergies Allergy/AdvReac Type Severity Reaction Status Date / Time shellfish derived Allergy Unknown HIVES Verified 02/22/18 17:03 Exam Vital Signs: Temperature 97.0 F 02/22/18 21:04 Pulse Rate 96 02/22/18 21:40 Respiratory Rate 18 02/22/18 22:19 Blood Pressure 139/75 02/22/18 21:04 Pulse Oximetry 96 02/22/18 21:40 Height/Weight/BMI: Height 1.6 m Weight 63.9 kg Body Mass Index 24.9 - Constitutional Present: no acute distress, well nourished, well developed, obese - Routine HEENT Exam Head: Present: normocephalic - Routine Respiratory Exam Present: CTA bilaterally - Routine Cardiovascular Exam Present: RRR, no murmur - Routine Abdominal Exam Present: soft, non distended, non tender. Absent: guarding Comments: tympanic bowel sounds. - Routine Extremities Exam Present: no edema, non tender, full ROM Results - Labs CBC & Chem 7: 02/22/18 17:21 02/22/18 17:21 Assessment and Plan (1) SBO (small bowel obstruction) Current visit: Yes Status: Acute Assessment and Plan: Will place to the on NPO, IVF, morphine for pain controll, gen surgery has been consulted. no sign of pancreatitis, recheck last in am, pt refused NG tube placement but pt does seem in stable condition in no distress. - Physician Narrative Narrative: Date: 02/22/18 Time: 2229 Hospital Course Summary Disclaimer: The visit summary below is not to be considered part of the above Progress Note.
[2018-02-23] MEDS: MORPHINE SULFATE 4mg INJECTION IVP PRN ×3 (01:04→13:19)
[2018-02-23] MEDS ORDERED: SORE THROAT SPRAY 20ml PO PRN (08:58)
[2018-02-23] MEDS ORDERED: ACETAMINOPHEN 650 MG SUPPOSITORY PR PRN (09:07)
[2018-02-23] MEDS ORDERED: PANTOPRAZOLE 40 MG INJECTION IVP ONE (09:08)
[2018-02-23] MEDS: LR 1,000 ML IV SCH ×3 (09:09→18:20)
--- NOTE | 2018-02-23 09:27 | History & Physical Report ---
History of Present Illness Date: 02/23/18 Chief complaint: partial small bowel obstruction HPI: Reva Brooke is a 67-year-old patient of Dr. Paz who presented to [facility] on the evening of 02/22/18 for evaluation of severe abdominal pain. She reports that on around 02/19/18 she began having generalized abdominal pain and bloating which progressively got worse to the point where she was unable to stand up. She also reported increasing nausea and dizziness with standing. She denies any known fevers, chills, chest pain, shortness of breath, abdominal pain, vomiting, dysuria or diarrhea. She has a history of chronic constipation, gastroparesis and recent bowel resection in 10/2017 because her "bowels were twisted". Unfortunately, she is unable to provide much information regarding her bowel resection as it occurred while she was travelling and was hospitalized in [place] at an unknown location. Upon arrival to the emergency department, labs and imaging were obtained. Labs were relatively unremarkable with the exception of slightly elevated SCr at 1.3 and tachycardia, presumed to be secondary to her pain it is improved with IV morphine. CT abdomen/pelvis revealed possible vs. partial small bowel obstruction as well as made note of a cyst on the pancreatic tail most likely a pseudocyst from her history of pancreatitis. Lipase was normal as were LFTs and UA. She states that she takes miralax daily and her last BM was 2 days ago and normal for her. No melena or hematochezia. In addition to her extensive GI history including multiple prior endoscopies for Barretts esophagus and a family history of colon cancer, she has been noted to have gastritis, hemorrhoids and prior duodenal ulcerations as well as gastroparesis with reported gastric emptying of only 4% as of 2014. She was seen and evaluated by Dr. Virgilio Dwyer GI in [place], in 03/2017 but has not follow up as she did not care for his disposition. She also has an extensive psychiatric history including multiple psychiatric admission for depression, bipolar, anxiety and suicidal ideations with prior suicide attempt including intentional medication overdose in 2002. She denies any current suicidal ideations or plan. Due to her partial vs. possible small bowel obstruction, the hospitalist service was consulted and she was admitted into inpatient status for further evaluation, surgical consultation, close monitoring and IV hydration with IV pain control. Her length of stay is expected to exceed more than 2 over nights. At the time of admissions, her current home medications were unable to be verified and are currently pending verification. While in the ED, she was strongly encouraged and refused placement of an NG tube. Patient is initially seen and evaluated by tele- hospitalist. Reva is seen this morning in conjunction with nursing in her room, while resting in bed. She awakens easily with soft voice stimuli and is stunned to see that she slept so well. She reports that her pain is improved as compared to when she was admitted and denies any current nausea or other complaints. After further discussion, she is willing to attempt placement of a NG tube for treatment of her small bowel obstruction. Labs today remained unremarkable with improvement in her renal function following initiation of IV fluids. Review of Systems All systems PM: 10-point ROS was reviewed, no additional remarkable complaints except - Constitutional Constitutional: Absent: chills, fatigue, fever(s), headache(s), malaise, weakness - EENMT Eyes: Absent: blurry vision, diplopia, loss of vision, photophobia Ears: Absent: ear pain Balance: Absent: falling to one side Nose: Absent: nosebleeds Mouth/Throat: Present: dry mouth. Absent: pain, sore throat, changes in swallowing - Cardiovascular Cardiovascular: Absent: chest pain, palpitations, syncope, dyspnea on exertion, orthopnea, edema, heart murmur Rhythm: Present: regular rhythm Vascular: Absent: pallor of an extermity, pedal edema, unilateral swelling - Respiratory Respiratory: Absent: cough, dyspnea, hemoptysis, dyspnea on exertion, wheezing, pain on inspiration - Gastrointestinal Gastrointestinal: Present: abdominal pain (generalized), constipation, dyspepsia , nausea. Absent: dysphagia, hematochezia, melena, vomiting - Genitourinary Genitourinary: Absent: dysuria, flank pain, hematuria Menstruation: post hysterectomy - Musculoskeletal Musculoskeletal: Present: back pain (chronic). Absent: deformity, muscle weakness, myalgias - Integumentary/Breasts Integumentary: Absent: erythema, rash - Neurological Neurological: Present: dizziness (prior to admission with standing). Absent: convulsions, focal weakness, weakness - Psychiatric Psychiatric: Present: anxiety, depression, difficulty concentrating (secondary to pain medications). Absent: hallucinations, homicidal ideation, suicidal ideation - Endocrine Endocrine: Absent: flushing, heat intolerance, palpitations - Hematologic/Lymphatic Hematologic/Lymphatic: Absent: easy bruising - Allergic/Immunologic Allergic/Immunologic: Absent: seasonal rhinorrhea Past Medical History Medical History Updates: Hypertension. History of alcohol and substance abuse. Macular degeration. GERD. Barretts esophagus. Chronic constipation. Gastroparesis, severe. History of duodenal ulceration. Gastritis. Hemorrhoids. History of pancreatitis secondary to alcohol abuse. Mild periportal liver fibrosis - 10/2008. Osteoarthritis. Bipolar, mixed. Depression. PTSD. History of suicidal ideation with prior attempt - 2002. Chronic back pain with degenerative disc disease. History of acute blood loss anemia requiring blood transfusion. Hiatal hernia. Surgical History: 1. Tonsillectomy when 1 years old somewhere in [place]. 2. Bilateral breast implants in 1972 at [place], [place]. 3. The patient states that she underwent operations for revision of the breast implants at least six times shortly after they were put in. These revision operations were performed in [place], [place]. The patient had scar tissue around the implants at this time. 4. Diagnostic laparoscopy with vaginal hysterectomy in 1986 at [place]. The patient states that the diagnostic laparoscopy was performed to see if the ovaries looked normal. They did look normal at diagnostic laparoscopy. The uterus was then removed at vaginal hysterectomy and the ovaries left in place. 5. Revision of breast implants in 1988 in [place]. One breast implant was ruptured which led to this operation. 6. Esophagogastroduodenoscopy and colonoscopy in 1989 or 1990 at [place]. The patient states that the duodenal ulcer was found at esophagogastroduodenoscopy at this time. 7. Total colonoscopy on 12/11/[address]go [address] [facility] at [place], [place]. The only thing found at this time was some internal hemorrhoids. Postoperative diagnoses were positive family history of colon carcinoma, chronic constipation and internal hemorrhoids. 8. Esophagogastroduodenoscopy on 10/07/[address] Ver[address]go at [facility] at [place], [place]. Findings were normal at the upper gastrointestinal tract at this time. 9. Complete anterior discectomy and decompression of the spinal canal, anterior spinal fusion and posterior spinal fusion on 08/24/[address] Estevez at [facility] at [place], [place]. Postoperative diagnosis was internal disc disruption at L3-4 and L4-5. Discharge diagnoses were L3-4 and L4-5 degenerative disc disease, acute blood loss anemia and anxiety disorder. 10. Repair of small incarcerated incisional hernia at upper abdomen on 03/10/[address] Verdugo at [facility] at [place], [place]. 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 11. Reduction of vertebral compression fracture with balloon kyphoplasty at L1 and L2, internal fixation of vertebral compression fracture with methyl methacrylate at L1 and L2 and use of intraoperative fluoroscopy on 06/14/[address] Herbert Estevez at [facility] at [place], [place]. Postoperative diagnosis was vertebral fracture at L1 and L2. 12. Total colonoscopy on 06/17/[address] Verdugo at [facility] at [place], [place]. Discharge diagnoses were positive family history of colon carcinoma and internal and external hemorrhoids. 13. Repair of umbilical hernia on 12/02/[address] Verdugo at [facility] at [place], [place]. Discharge diagnosis was umbilical hernia. 14. Esophagogastroduodenoscopy with biopsies on 08/04/[address] Ruano at [facility] at [place], [place]. Diagnoses after the procedure were reflux esophagitis, watermelon stomach versus portal gastropathy , gastritis, antral ulcer and mild duodenitis. Biopsies performed at the stomach showed mild chronic gastritis. The pathology report diagnosis on biopsy of the antral gastric ulcer was chronic gastritis with superficial erosion. Biopsies of the gastroesophageal junction showed Reyes's esophagitis without dysplasia. 15. Laparoscopic cholecystectomy, intraoperative cholangiograms and needle biopsies of the liver on 10/26/[address] Verdugo at [place], [place]. Pathology report diagnosis on the gallbladder was chornic cholecystitis. Pathology report on needle biopsies of the liver was mild periportal fibrosis. 16. Cardiac catheterization on 09/05/[address] Green at [place], [place]. One postoperative diagnosis was no significant coronary obstructive lesions. Another postoperative diagnosis was normal left ventricular systolic function. 17. Transesophageal echocardiogram on 09/05/[address] Green at [place], [place]. This procedure did show mild mitral regurgitation and mild tricupsid regurgitation. 18. Esophagogastroduodenoscopy on 10/11/[address] [facility] at [place], [place]. Postoperative diagnoses were mild gastritis at the body of the stomach, hyperplastic polyps in the esophagus and small hiatal hernia. 19. Esophagogastoduodenoscopy with biopsies on 08/29/[address] [facility] at [place], [place]. Postoperative Diagnoses were esophageal ulcer at distal esophagus, hiatal hernia and gastritis at body and antrum of stomach. Biopsies of the gastroesophageal junction showed mild reflux esophagitis. There was no gastric type mucosa present. There was no dysplasia present. Biopsies performed at the body and antrum of the stomach showed no abnormalities. 20. Esophagogastroduodenoscopy with biopsies on 09/03/[address] [facility] at [place], [place]. Postoperative diagnoses were reflux esophagitis with areas of Reyes's change, small hiatal hernia and mild gastritis. Biopsies performed at the gastroesophageal junction showed reflux esophagitis. 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 There was no dysplasia. 21. Total colonoscopy on 09/26/[address] Verdugo at [facility] at [place], [place]. Postoperative diagnoses were positive family history of colon carcinoma, chronic constipation and internal and external hemorrhoids. The father of this patient has had colon carcinoma. 22. Cervical spine fusion at C3-5 on 08/13/[address] Mckeon at the [facility] at [place], [place]. 23. Esophagogastroduodenoscopy with biopsies on 12/30/[address] [facility] at [place], [place]. 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 There was no dysplasia. 24. Esophagogastroduodenoscopy with biopsies on 12/22/[address]ano at [facility] at [place], [place]. Postoperative diagnoses was reflux esophagitis. Biopsies performed at the duodenum showed only some patchy mild intraepithelial lymphocytosis. Biopsies performed at the gastroesophageal junction showed chronic esophagitis with focal mucosal erosion. There was intestinal metaplasia compatible with Reyes's epithelium. 25. Esophagogastroduodenoscopy with biopsies on 01/11/[address] Ruano at [facility] at [place], [place]. Postoperative diagnoses showed reflux esophagitis, small axial type hiatal hernia and a few erosions at the level of the duodenum. Biopsies at the distal esophagus showed Reyes's epithelium. There was no dysplasia. There were no significant eosinophilic inflammatory infiltrates identified. 26. Radiofrequency ablation at back on 05/10/[address] Hope at the [facility] at [place], [place]. 27. Bowel resection secondary to "twisted bowel" in [place], 10/2017. The patient has had other previous hospitalizations as follows: 1. Hospitalized in 1995 in [place] for treatment of major depression. 2. Hospitalized in May 2003 at [facility] at [place], [place]. Discharge diagnoses for this hospitalization were bipolar affective disorder, suicide attempt, medication overdose, chronic back pain, tobacco use, menopausal and hypertension. 3. Hospitalized in May 2003 and June 2003 at [facility] at [place], [place] for treatment of bipolar disorder following a suicide attempt in May 2003. 4. The inpatient admission history and physical examination report from [facility] at [place], [place] on 08/25/03 states that the patient had two prior hospitalizations at [facility], as well as partial hospital stays before 08/25/03. 5. Inpatient hospitalization from 08/25/03 to 08/30/03 at [facility] at [place], [place]. 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 6. Hospitalized in May [address] [facility] at [place], [place]. This was for a problem with alcohol. 7. Hospitalized in November 2004 at [place], [place]. Discharge diagnoses were severe mixed bipolar 1 disorder with psychotic features, panic disorder without agoraphobia and substance abuse. 8. Hospitalized in January 2005 at [facility] at [place], [place]. Discharge diagnoses were severe mixed bipolar 1 disorder with psychotic features, panic disorder without agoraphobia and substance abuse. 9. Hospitalized from 08/02/06 to 08/07/06 at [place], [place]. Diagnoses for this hospitalization were severe bipolar disorder, depressed without psychotic features, panic disorder without agoraphobia and alcohol dependence. 10. Hospitalized from 09/01/07 to 09/15/07 at [facility] at [place], [place]. Discharge diagnoses were severe mixed bipolar 1 disorder without psychotic features, panic disorder without agoraphobia and alcohol dependence. Family History: Family History Father - in 80s Cancer of colon COPD (chronic obstructive pulmonary disease) Cancer of prostate Mother - age 93 CAD Pacemaker Patient has 2 daughters and 1 son, all living and reportedly healthy. Her third and current , Moses, whom she has been for 5 years was recently diagnosed with Stage IV lung cancer. Family History: As Above - Social History Smoking status: Former smoker (quit 2008 after smoking for ~40 years) Packs per day: 0.5 Packs-years: 20 Substance use type: former substance user, opiates, prescription drug Alcohol intake frequency: former alcohol drinker Last drink: days (ago) (7 - "partied" for a few days after learning of her husbands cancer) Housing: house Household members: spouse Current occupational status: retired Does patient use chewing tobacco?: No Current residence: Apartment/Private Home Social history: PCP - Dr. Paz. Surg - Dr. Verdugo. Spine - Dr. Estevez, Dr. Mckeon. Pain - Dr. Hope. Patient has previously seen Dr. Virgilio Dwyer (GI) and Dr. Green (cardio) but no longer follows with either. Medications Home Medications Medication Instructions Recorded Confirmed Type zaleplon 10 mg capsule 10 mg PO HS 30 Days #30 cap 03/04/17 02/23/18 History Aspirin [Adult Aspirin Regimen] 81 mg PO DAILY 02/22/18 02/22/18 History Benztropine [Cogentin] 1 mg PO HS PRN 02/22/18 02/23/18 History Calcium 600 + D [Caltrate + D] 1 tab PO DAILY 02/22/18 02/22/18 History Celecoxib [Celecoxib] 200 mg PO DAILY 02/22/18 02/23/18 History Hydrocodone/APAP 10/325 [Rolla 1 tab PO Q6H PRN 02/22/18 02/23/18 History 10/325] Ibuprofen 400 mg PO Q4H PRN 02/22/18 02/22/18 History Lisinopril [Prinivil] 10 mg PO DAILY 02/22/18 02/23/18 History Memantine HCl [Memantine HCl] 5 mg PO BID 02/22/18 02/23/18 History Vits #93/Iron Fum/FA 1 each PO DAILY 02/22/18 02/22/18 History [ Formula Tablet] Promethazine Tab [Phenergan Tab] 25 mg PO Q6H PRN 02/22/18 02/23/18 History Sucralfate [Carafate] 1 gm PO HS 02/22/18 02/22/18 History Vit C/E/Zn/Coppr/Lutein/Zeaxan 1 each PO DAILY 02/22/18 02/22/18 History [Preservision Areds 2 Softgel] buPROPion HCl [Bupropion HCl Sr] 150 mg PO BID 02/22/18 02/23/18 History clonazePAM [Clonazepam] 0.5 mg PO QID PRN 02/22/18 02/23/18 History OLANZapine [Olanzapine] 30 mg PO HS 02/23/18 02/23/18 History Allergies Allergy/AdvReac Type Severity Reaction Status Date / Time shellfish derived Allergy Unknown HIVES Verified 02/22/18 17:03 Exam Vital Signs: Temperature 99.2 F 02/22/18 23:38 Pulse Rate 89 02/22/18 23:38 Respiratory Rate 14 02/22/18 23:38 Blood Pressure 120/65 02/22/18 23:38 Pulse Oximetry 92 02/22/18 23:38 Height/Weight/BMI: Height 5 ft 3 in Weight 141 lb 5.061 oz Body Mass Index 24.9 Comments: Patient resting in bed and awakens easily with soft voice stimuli. Nursing present on exam. - Constitutional Present: no acute distress, well nourished, well developed, cooperative - Routine HEENT Exam Head: Present: normocephalic, atraumatic Eye: Present: PERRL. Absent: conjunctival icterus ENT: Present: mucous membranes dry - Routine Neck Exam Present: supple, full ROM, trachea midline - Routine Chest/Breast/Axilla Exam Chest wall: Absent: pacemaker - Routine Respiratory Exam Present: CTA bilaterally. Absent: respiratory distress, wheezes - Routine Cardiovascular Exam Present: RRR, S1, S2 - Routine Abdominal Exam Present: soft, tenderness (mild, generalized), distended. Absent: rebound, guarding, firm Comments: Tinkering bowel sounds. - Routine Extremities Exam Present: no edema, non tender, full ROM, pulses intact, normal capillary refill - Routine Back/Spine/Pelvis Exam Back/Spine: Present: full ROM. Absent: vertebral tenderness - Routine Skin Exam Present: intact, dry, warm Comments: Afebrile. - Routine Neurological Exam Present: alert, moving all extremities, hearing grossly intact, normal speech. Absent: hemineglect Patient does confuse her son's history with her brother's on exam, stating that her brother is 38 years old and at times appears to have difficulty concentrating most likely secondary to medications. - Routine Psychiatric Exam Present: cooperative. Absent: suicidal ideation, homicidal ideation, visual hallucinations Comments: Becomes tearful when talking about her husbands cancer diagnosis. Results - Labs CBC & Chem 7: 02/23/18 04:39 02/23/18 04:39 Assessment and Plan (1) SBO (small bowel obstruction) Current visit: Yes Status: Acute Assessment and Plan: Will place to the on NPO, IVF, morphine for pain controll, gen surgery has been consulted. no sign of pancreatitis, recheck last in am, pt refused NG tube placement but pt does seem in stable condition in no distress. Assessment: Acute partial vs. possible small bowel obstruction. Acute generalized abdominal pain with nausea. Hypercalcemia, present on admission. Anemia. Hypertension. History of alcohol and substance abuse. Macular degeration. GERD. Barretts esophagus. Chronic constipation. Gastroparesis, severe. History of duodenal ulceration. Gastritis. Hemorrhoids. History of pancreatitis secondary to alcohol abuse. Mild periportal liver fibrosis - 10/2008. Osteoarthritis. Bipolar, mixed. Depression. PTSD. History of suicidal ideation with prior attempt - 2002. Chronic back pain with degenerative disc disease. History of acute blood loss anemia requiring blood transfusion. Hiatal hernia. Plan - 02/23/18 Admit to inpatient status under the hospitalist service. Will consult Dr. Moise who is on-call for Dr. Verdugo. Patient initially refused placement of NG tube on admission but is willing to attempt placement now. Attempt to place NG now. Maintain NPO status. LR 100cc/hr initiated on admission. Will change to NS with KCl at 100cc/hr. Monitor urinary output and daily weight closely for signs of fluid overload. Echocardiogram in 2010 was unremarkable. Home meds were unable to be verified on admission. Nursing to work on medication verification now. Will hold all oral medications. Monitor blood pressure closely - prior medication list noted lisinopril 10mg daily at home. Blood pressures remains stable. Patient tachycardiac on admission which has since resolved with pain medication and IV fluids. Continue to monitor. No history of tachycardia or arrhythmia. Significant psychiatric history. Monitor closely for signs of agitation, worsening depression or anxiety. Ativan 0.5mg Q6H PRN anxiety. Morphine PRN pain. Reglan 5mg IV Q6H scheduled for severe gastroparesis. Protonix 40mg IV BID for history of GERD, gastritis, ulcerations and Reyes esophagus. SCDs for DVT prophylaxis. Upon discharge, patient's care will be returned to her PCP, Dr. Paz. 02/23/2018-11 AM-I examined the patient independently. I reviewed this chart, the patient history, and the DOCUMENT CONTROL CLERK's/PA's documented findings as above. We discussed and formulated the assessment and plan as above with the additions below.-Dr. Zamorano The patient was seen this morning in her room after placement of NG tube. There is a very small amount of NG secretion which is slightly pink tinged (she has had Chloraseptic spray). She denies any nausea and has had no vomiting with this episode of abdominal pain. She has had some loose watery stools today. She states her pain is a 6 or 7 on a scale of 1-10. She had mild hypoxia and was placed on 1 L of oxygen with oxygen saturations of 96%. She denies shortness of breath. She denies chest pain. She denies any pain elsewhere. She has a history of bipolar disorder. Affect appears normal at this time. On exam she is alert and oriented 3. She is in no acute distress. No obvious anxiety or agitation. HEENT reveals NG tube in place. Oropharynx is moist. Neck is supple. Chest is clear to auscultation anteriorly. Cardiovascular reveals a regular rate and rhythm. Abdomen soft and is mild to moderately distended. She is tender throughout, but no guarding. Bowel sounds are present. Extremities are free of edema. SCDs are on. Skin is warm and dry and without rashes. Pertinent lab includes felt lactate was normal 2. Lipase was normal. Total protein elevated at 8.5. Globulin elevated at 4.0. White count was normal at 8.6 without significant left shift. Creatinine improved from 1.3-1.1 after IV fluids. Calcium improved from 10.7-10.[address] abdomen was read by Dr. Laughlin this morning with results below Impression: 1. Acute high-grade or complete small bowel obstruction which appears to be due to a region of mesenteric twisting in the central upper pelvis. This could be due to adhesion or internal hernia. Emergent surgical consultation is recommended. 2. Interval severe pancreatic atrophy following the patient's prior episode of acute pancreatitis with a 4.5 cm pseudocyst in the left upper quadrant Impression and plan Small bowel obstruction -Reading on CT scan this morning shows acute high-grade or complete small bowel obstruction which appears to be due to a region of mesenteric twisting in the central upper pelvis with recommendation for emergent surgical consultation. I did call and discuss history, CT report, lab findings, and exam findings with Dr. Moise and he stated he would be in to see the patient. Continue with current treatment for now with IV fluids, IV morphine, NG placement, nothing by mouth status. Continue Protonix iv ordered for history of GERD and duodenal ulcers Regarding history of chronic pain, morphine has been ordered as needed for pain Regarding history of hypertension, lisinopril is on hold. We'll monitor BP and give iv medication if needed. Regarding history of gastroparesis, Reglan was ordered Regarding history of bipolar disorder and PTSD-the patient's psychiatric medications are on hold including olanzapine, clonazepam, bupropion and Cogentin. Will give lorazepam IV as needed. At this time, patient is not exhibiting any psychiatric difficulties. We'll consult psychiatry if she develops mood difficulties. DVT Prophylaxis: SCD's GI Prophylaxis: Protonix Resuscitation Status: Full Code - Time spent with patient Time with patient PN: 70 minutes - Physician Narrative Physician: Ivis Zamorano MD Narrative: Date: 02/23/18 Time: 0910 Hospital Course Summary Disclaimer: The visit summary below is not to be considered part of the above Progress Note. Hospital Course: Plan - 02/23/18 Admit to inpatient status under the hospitalist service. Will consult Dr. Moise who is on-call for Dr. Verdugo. Patient initially refused placement of NG tube on admission but is willing to attempt placement now. Attempt to place NG now. Maintain NPO status. LR 100cc/hr initiated on admission. Will change to NS with KCl at 100cc/hr. Monitor urinary output and daily weight closely for signs of fluid overload. Echocardiogram in 2010 was unremarkable. Home meds were unable to be verified on admission. Nursing to work on medication verification now. Will hold all oral medications. Monitor blood pressure closely - prior medication list noted lisinopril 10mg daily at home. Blood pressures remains stable. Patient tachycardiac on admission which has since resolved with pain medication and IV fluids. Continue to monitor. No history of tachycardia or arrhythmia. Significant psychiatric history. Monitor closely for signs of agitation, worsening depression or anxiety. Ativan 0.5mg Q6H PRN anxiety. Morphine PRN pain. Reglan 5mg IV Q6H scheduled for severe gastroparesis. Protonix 40mg IV BID for history of GERD, gastritis, ulcerations and Reyes esophagus. SCDs for DVT prophylaxis. Upon discharge, patient's care will be returned to her PCP, Dr. Paz.
--- NOTE | 2018-02-23 09:53 | CT Scan Report ---
Indication: abd pain, Hx Pancreatitis, "twisted colon" PROCEDURE: CT abdomen pelvis w con: Encounter: Initial Comparison: October 12, 2016 Technique: Axial CT images were performed through the abdomen and pelvis after the administration of intravenous contrast. Coronal and sagittal two-dimensional reformats. Automated Exposure Control and Iterative Reconstruction dose reducing techniques were utilized. Contrast: Omnipaque 300 67 mL Findings: With residual or recurrent airspace opacity in the right lower lobe. Gas granuloma in the right middle lobe. Hiatal hernia. The liver is unremarkable. Gallbladder is surgically absent. Spleen is normal. Interval severe atrophy of the pancreatic body and tail with a 4.5 cm pseudocyst in the region of the splenic hilum. The adrenal glands are unremarkable. Kidneys are grossly normal. There are dilated fluid-filled small bowel loops in the abdomen and pelvis measuring up to 3.6 cm in diameter with transition to decompressed distal small bowel with an area of mesenteric swirling seen in the central pelvis on axial image #57. This appears to be the site of obstruction. Moderate to large amount of stool in the colon. No free air. No significant free pelvic fluid. Bony structures show no acute changes. Impression: 1. Acute high-grade or complete small bowel obstruction which appears to be due to a region of mesenteric twisting in the central upper pelvis. This could be due to adhesion or internal hernia. Emergent surgical consultation is recommended. 2. Interval severe pancreatic atrophy following the patient's prior episode of acute pancreatitis with a 4.5 cm pseudocyst in the left upper quadrant There is a preliminary report by [facility]. .
[2018-02-23] MEDS: NS with KCL 20 mEq 1,000 ML IV SCH ×2 (10:00→22:10)
[2018-02-23] MEDS: METOCLOPRAMIDE 10mg/2ml INJECTION IVP SCH ×3 (10:00→20:31)
--- NOTE | 2018-02-23 11:11 | XRay Report ---
Indication: NG TUBE PLACEMENT VERIFICATION PROCEDURE: XR KUB: Encounter: Initial Comparison: CT abdomen dated February 22, 2018 Findings: Dilated small bowel loops again seen consistent with small bowel obstruction. Contrast material in the bladder. The nasogastric tube is looped upon itself and appears to be coiled in the distal esophagus. The tip is not seen. Impression: Nasogastric tube is coiled in the esophagus. Recommend repositioning or replacement. .
--- NOTE | 2018-02-23 15:06 | Anesthesia Preoperative Report ---
Anesthesia Preoperative Record - Date and Time Date: 02/23/18 Preoperative Diagnosis: partial SBO Proposed Procedure: Exploratory Laparotomy for SBO NPO Since Date: 02/22/18 NPO Since Time: 20:00 Allergies/Adverse Reactions: Allergies Allergy/AdvReac Type Severity Reaction Status Date / Time shellfish derived Allergy Unknown HIVES Verified 02/22/18 17:03 - Vital Signs Vital Signs: Temperature 96 F L 02/23/18 07:00 Pulse Rate 92 02/23/18 07:00 Respiratory Rate 16 02/23/18 13:19 Blood Pressure 131/69 02/23/18 07:00 Pulse Oximetry 93 02/23/18 07:00 Height and Weight: Height 5 ft 3 in Weight 64.1 kg Body Mass Index 24.9 - Medications Inpatient Medications: Current Medications Acetaminophen (Tylenol) 650 mg KS Q5H PRN PRN Reason: Pain Potassium Chloride/Sodium Chloride (Ns With Kcl 20 Meq Premix) 1,000 mls @ 100 mls/hr IV .Q10H JOHNATHON Last Admin: 02/23/18 10:00 Dose: 100 mls/hr Lactated Ringer's (Lactated Ringers) 1,000 mls @ 50 mls/hr IV .Q20H JOHNATHON Lorazepam (Ativan Inj) 0.5 mg IVP Q6H PRN Last Admin: 02/23/18 09:13 Dose: 0.5 mg Metoclopramide HCl (Reglan) 5 mg IVP Q6HR JOHNATHON Last Admin: 02/23/18 10:00 Dose: 5 mg Morphine Sulfate (Morphine Sulfate Inj) 4 mg IVP Q3H PRN PRN Reason: Pain Last Admin: 02/23/18 13:19 Dose: 4 mg Ondansetron HCl (Zofran) 4 mg IVP Q6H PRN PRN Reason: Nausea &/or vomiting Pantoprazole Sodium (Protonix Iv) 40 mg IVP BID JOHNATHON Sodium Chloride (Iv Flush) 10 - 80 ml IVF PRN PRN PRN Reason: Flushing Last Admin: 02/22/18 19:16 Dose: 10 ml Throat Lozenges (Chloraseptic [place]) 3 spray PO Q2H PRN Last Admin: 02/23/18 09:16 Dose: 3 spray Home Medications: Home Medications Medication Instructions Recorded Confirmed Type zaleplon 10 mg capsule 10 mg PO HS 30 Days #30 cap 03/04/17 02/23/18 History Aspirin [Adult Aspirin Regimen] 81 mg PO DAILY 02/22/18 02/22/18 History Benztropine [Cogentin] 1 mg PO HS PRN 02/22/18 02/23/18 History Calcium 600 + D [Caltrate + D] 1 tab PO DAILY 02/22/18 02/22/18 History Celecoxib [Celecoxib] 200 mg PO DAILY 02/22/18 02/23/18 History Hydrocodone/APAP 10/325 [[place] 1 tab PO Q6H PRN 02/22/18 02/23/18 History 10/325] Ibuprofen 400 mg PO Q4H PRN 02/22/18 02/22/18 History Lisinopril [Prinivil] 10 mg PO DAILY 02/22/18 02/23/18 History Memantine HCl [Memantine HCl] 5 mg PO BID 02/22/18 02/23/18 History Vits #93/Iron Fum/FA 1 each PO DAILY 02/22/18 02/22/18 History [ Formula Tablet] Promethazine Tab [Phenergan Tab] 25 mg PO Q6H PRN 02/22/18 02/23/18 History Sucralfate [Carafate] 1 gm PO HS 02/22/18 02/22/18 History Vit C/E/Zn/Coppr/Lutein/Zeaxan 1 each PO DAILY 02/22/18 02/22/18 History [Preservision Areds 2 Softgel] buPROPion HCl [Bupropion HCl Sr] 150 mg PO BID 02/22/18 02/23/18 History clonazePAM [Clonazepam] 0.5 mg PO QID PRN 02/22/18 02/23/18 History OLANZapine [Olanzapine] 30 mg PO HS 02/23/18 02/23/18 History Is Patient on Beta Jose Antonio?: No - Medical History Respiratory: Reports: Bronchitis (occasional), Pneumonia (hx), Other (former smoker) DENIES: Sleep Apnea Cardiovascular: Reports: Hypertension Gastrointestional: Reports: Obstructive Bowel (currently. SBO), Gastroesophageal Reflux Disease (moderate control with meds), Ulcer, Other ( CONSTIPATION pancreatitis barretts esophagus) Neuro/Musculoskeletal: Reports: Back Problems (multiple surgeries and fusions), Depression, Syncope Renal/Endocrine: Reports: Weight Loss (35 lbs 4 months) Other History: Reports: Anesthesia Reactions (NAUSEA), Blood Transfusions - Surgical History GI Surgery/Treatments: Reports: Cholecystectomy, Colonoscopy, EGD, Other ( "Twisted Bowel repair") Musculoskeletal Surgery/Tx: Reports: Other (BACK,NECK SURGERY) Reproductive Surgery/Treatment: Reports: Hysterectomy Anesthesia Reactions: Nausea and Vomiting Hx Family Anesthesia Reaction: No History of Motion Sickness: No - Social History Smoking Status: Former smoker (quit 2008 after smoking for ~40 years) Packs per day: 0.5 Pack-years: 20 Hx Chewing Tobacco Use: No Second Hand Exposure: No Substance Use Type: former substance user, opiates, prescription drug Alcohol Intake: former Alcohol Intake Frequency: former alcohol drinker Last Drink: days (ago) (7 - "partied" for a few days after learning of her husbands cancer) - Pertinent Findings Laboratory: CBC and BMP 02/23/18 04:39 02/23/18 04:39 BMP 02/23/18 04:39 Sodium 136 Potassium 3.9 Chloride 98 Carbon Dioxide 31 H BUN 16.0 Creatinine 1.1 D Glucose 105 Calcium 10.5 H EKG: Sinus Rhythm - Physical Exam Respiratory Exam: Present: lungs clear, bilateral breath sounds equal Cardiovascular Exam: Present: regular rate and rhythm, no murmur - Airway Assessment Mallampati Score: II TMD: 3 Fingerbreadths Neck Extension: poor (C 3-5 fusion) Overall Assessment: may be difficult mask vent (NG tube in place), may be difficult intubation - ASA ASA Score: 3, E - Plan Anesthesia: General Inhalation Gases - Discussion Discussion: Discussed risks/options/alternatives of anesthesia and questions answered. Patient consents. Nursing pain assessment noted. Present for Discussion: other (none) Attestation Statement: Prior to the delivery of any anesthetic medication, I examined the patient, developed the plan, obtained the patient's consent and discussed the risk and benefits of the procedure with the patient/guardian. - Additional Information Seen by Anesthesia: Yes
[2018-02-23] MEDS ORDERED: LR 1,000 ML IV SCH (15:15)
[2018-02-23] MEDS ORDERED: MIDAZOLAM 2mg/2ml INJECTION ONE (15:17)
[2018-02-23] MEDS ORDERED: FentaNYL 250 MCG/5 ML INJECTION ONE ×2 (15:17→17:22)
[2018-02-23] MEDS ORDERED: KETAMINE 500 MG/10 ML INJECTION ONE (15:17)
[2018-02-23] MEDS ORDERED: ROCURONIUM 50 MG/5 ML INJECTION IVP ONE (15:19)
[2018-02-23] MEDS ORDERED: ONDANSETRON 4 MG/2 ML INJECTION ONE (15:19)
[2018-02-23] MEDS ORDERED: DEXAMETHASONE 4 MG/ML INJECTION ONE (15:19)
[2018-02-23] MEDS ORDERED: DiphenhydrAMINE 50 MG/ML INJECTION ONE (15:19)
[2018-02-23] MEDS ORDERED: PROPOFOL 20 ML ONE (15:19)
[2018-02-23] MEDS ORDERED: SUCCINYLCHOLINE 20mg/mL 10mL INJECTION ONE (15:19)
[2018-02-23] MEDS ORDERED: SEVOFLURANE 250ml LIQUID IH ONE (15:23)
--- NOTE | 2018-02-23 15:40 | General Surgery Consult Note ---
Consult date: 02/23/18 Attending Physician: Ivis Zamorano MD Reason for consult: other (SBO) [facility] Medical History Updates: Hypertension. History of alcohol and substance abuse. Macular degeration. GERD. Reyes's esophagus. Chronic constipation. Gastroparesis, severe. History of duodenal ulceration. Gastritis. Hemorrhoids. History of pancreatitis secondary to alcohol abuse - 09/2016. Mild periportal liver fibrosis - 10/2008. Osteoarthritis. Bipolar, mixed. Depression. PTSD. History of suicidal ideation with prior attempt - 2002. Chronic back pain with degenerative disc disease. History of acute blood loss anemia requiring blood transfusion. Hiatal hernia. Surgical History: 1. Tonsillectomy when 1 years old somewhere in [place]. 2. Bilateral breast implants in 1972 at [place], [place]. 3. The patient states that she underwent operations for revision of the breast implants at least six times shortly after they were put in. These revision operations were performed in [place], [place]. The patient had scar tissue around the implants at this time. 4. Diagnostic laparoscopy with vaginal hysterectomy in 1986 at [place]. The patient states that the diagnostic laparoscopy was performed to see if the ovaries looked normal. They did look normal at diagnostic laparoscopy. The uterus was then removed at vaginal hysterectomy and the ovaries left in place. 5. Revision of breast implants in 1988 in [place]. One breast implant was ruptured which led to this operation. 6. Esophagogastroduodenoscopy and colonoscopy in 1989 or 1990 at [place]. The patient states that the duodenal ulcer was found at esophagogastroduodenoscopy at this time. 7. Total colonoscopy on 12/11/[address] Verdugo at [facility] at [place], [place]. The only thing found at this time was some internal hemorrhoids. Postoperative diagnoses were positive family history of colon carcinoma, chronic constipation and internal hemorrhoids. 8. Esophagogastroduodenoscopy on 10/07/[address] Verdugo at [facility] at [place], [place]. Findings were normal at the upper gastrointestinal tract at this time. 9. Complete anterior discectomy and decompression of the spinal canal, anterior spinal fusion and posterior spinal fusion on 08/24/[address] Estevez at [facility] at [place], [place]. Postoperative diagnosis was internal disc disruption at L3-4 and L4-5. Discharge diagnoses were L3-4 and L4-5 degenerative disc disease, acute blood loss anemia and anxiety disorder. 10. Repair of small incarcerated incisional hernia at upper abdomen on 03/10/[address] Verdugo at [facility] at [place], [place]. 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 11. Reduction of vertebral compression fracture with balloon kyphoplasty at L1 and L2, internal fixation of vertebral compression fracture with methyl methacrylate at L1 and L2 and use of intraoperative fluoroscopy on 06/14/[address] Herbert Estevez at [facility] at [place], [place]. Postoperative diagnosis was vertebral fracture at L1 and L2. 12. Total colonoscopy on 06/17/[address] Verdugo at [place], [place]. Discharge diagnoses were positive family history of colon carcinoma and internal and external hemorrhoids. 13. Repair of umbilical hernia on 12/02/[address] Verdugo at [place], [place]. Discharge diagnosis was umbilical hernia. 14. Esophagogastroduodenoscopy with biopsies on 08/04/[address] Ruano at [facility] at [place], [place]. Diagnoses after the procedure were reflux esophagitis, watermelon stomach versus portal gastropathy , gastritis, antral ulcer and mild duodenitis. Biopsies performed at the stomach showed mild chronic gastritis. The pathology report diagnosis on biopsy of the antral gastric ulcer was chronic gastritis with superficial erosion. Biopsies of the gastroesophageal junction showed Reyes's esophagitis without dysplasia. 15. Laparoscopic cholecystectomy, intraoperative cholangiograms and needle biopsies of the liver on 10/26/[address] Verdugo at [place], [place]. Pathology report diagnosis on the gallbladder was chornic cholecystitis. Pathology report on needle biopsies of the liver was mild periportal fibrosis. 16. Cardiac catheterization on 09/05/[address] Green at [place], [place]. One postoperative diagnosis was no significant coronary obstructive lesions. Another postoperative diagnosis was normal left ventricular systolic function. 17. Transesophageal echocardiogram on 09/05/[address] Green at [place], [place]. This procedure did show mild mitral regurgitation and mild tricupsid regurgitation. 18. Esophagogastroduodenoscopy on 10/11/[address] Ruano at [facility] at [place], [place]. Postoperative diagnoses were mild gastritis at the body of the stomach, hyperplastic polyps in the esophagus and small hiatal hernia. 19. Esophagogastoduodenoscopy with biopsies on 08/29/[address] Ruano at [facility] at [place], [place]. Postoperative Diagnoses were esophageal ulcer at distal esophagus, hiatal hernia and gastritis at body and antrum of stomach. Biopsies of the gastroesophageal junction showed mild reflux esophagitis. There was no gastric type mucosa present. There was no dysplasia present. Biopsies performed at the body and antrum of the stomach showed no abnormalities. 20. Esophagogastroduodenoscopy with biopsies on 09/03/[address] Ruano at [facility] at [place], [place]. Postoperative diagnoses were reflux esophagitis with areas of Reyes's change, small hiatal hernia and mild gastritis. Biopsies performed at the gastroesophageal junction showed reflux esophagitis. 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 There was no dysplasia. 21. Total colonoscopy on 09/26/[address] Verdugo at [facility] at [place], [place]. Postoperative diagnoses were positive family history of colon carcinoma, chronic constipation and internal and external hemorrhoids. The father of this patient has had colon carcinoma. 22. Cervical spine fusion at C3-5 on 08/13/[address] Mckeon at the [facility] at [place], [place]. 23. Esophagogastroduodenoscopy with biopsies on 12/30/[address] Ruano at [facility] at [place], [place]. 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 There was no dysplasia. 24. Esophagogastroduodenoscopy with biopsies on 12/22/[address] Ruano at [facility] at [place], [place]. Postoperative diagnoses was reflux esophagitis. Biopsies performed at the duodenum showed only some patchy mild intraepithelial lymphocytosis. Biopsies performed at the gastroesophageal junction showed chronic esophagitis with focal mucosal erosion. There was intestinal metaplasia compatible with Reyes's epithelium. 25. Esophagogastroduodenoscopy with biopsies on 01/11/[address] Ruano at [facility] at [place], [place]. Postoperative diagnoses showed reflux esophagitis, small axial type hiatal hernia and a few erosions at the level of the duodenum. Biopsies at the distal esophagus showed Reyes's epithelium. There was no dysplasia. There were no significant eosinophilic inflammatory infiltrates identified. 26. Radiofrequency ablation at back on 05/10/[address] Hope at the [facility] at [place], [place]. 27. Esophagogastroduodenoscopy - 03/22/[address] See Verdugo at [facility]. Endoscopy revealed findings at the distal 2 cm at the esophagus consistent in appearance with Reyes's esophagus changes. Pathology showed mild chronic mucosal inflammation. There was extensive intestinal metaplasia compatible with Reyes's epithelium. There was no dysplasia or malignant neoplasm identified. Followup EGD with biopsies for surveillance of the Reyes 's esophagus was recommended in 2 years. 28. Exploratory laparotomy with bowel resection secondary to "twisted bowel" - 10/2017 in [place], [place]. The patient has had other previous hospitalizations as follows: 1. Hospitalized in 1995 in [place] for treatment of major depression. 2. Hospitalized in May 2003 at [facility] at [facility] [place] at [place], [place]. Discharge diagnoses for this hospitalization were bipolar affective disorder, suicide attempt, medication overdose, chronic back pain, tobacco use, menopausal and hypertension. 3. Hospitalized in May 2003 and June 2003 at [facility] at [facility] at [place], [place] for treatment of bipolar disorder following a suicide attempt in May 2003. 4. The inpatient admission history and physical examination report from [facility] at [place], [place] on 08/25/03 states that the patient had two prior hospitalizations at [facility], as well as partial hospital stays before 08/25/03. 5. Inpatient hospitalization from 08/25/03 to 08/30/03 at [facility] at [place], [place]. 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 6. Hospitalized in May 2004 at [facility] at [place], [place]. This was for a problem with alcohol. 7. Hospitalized in November 2004 at [facility] at [place], [place]. Discharge diagnoses were severe mixed bipolar 1 disorder with psychotic features, panic disorder without agoraphobia and substance abuse. 8. Hospitalized in January 2005 at [facility] at [place], [place]. Discharge diagnoses were severe mixed bipolar 1 disorder with psychotic features, panic disorder without agoraphobia and substance abuse. 9. Hospitalized from 08/02/06 to 08/07/06 at [facility] at [place], [place]. Diagnoses for this hospitalization were severe bipolar disorder, depressed without psychotic features, panic disorder without agoraphobia and alcohol dependence. 10. Hospitalized from 09/01/07 to 09/15/07 at [facility] at [place], [place]. Discharge diagnoses were severe mixed bipolar 1 disorder without psychotic features, panic disorder without agoraphobia and alcohol dependence. 11. Hospitalized at [facility] from 10/06/2016 to 10/22/2016 for acute alcoholic pancreatitis. Family History: Family History Father Cancer of colon COPD (chronic obstructive pulmonary disease) Cancer of prostate - Social History Smoking status: Former smoker (quit 2008 after smoking for ~40 years) Packs per day: 0.5 Packs-years: 20 second hand exposure: No Substance use type: former substance user, opiates, prescription drug Alcohol intake: former Alcohol intake frequency: former alcohol drinker Last drink: days (ago) (7 - "partied" for a few days after learning of her husbands cancer) Housing: house Household members: spouse Current occupational status: retired Does patient use chewing tobacco?: No Current residence: Apartment/Private Home Social history: PCP - Dr. Paz. Surg - Dr. Verdugo. Spine - Dr. Estevez, Dr. Mckeon. Pain - Dr. Hope. Patient has previously seen Dr. Virgilio Dwyer (GI) and Dr. Green (cardio) but no longer follows with either. Taking care of her with Stage IV cancer. Medications Home Medications Medication Instructions Recorded Confirmed Type zaleplon 10 mg capsule 10 mg PO HS 30 Days #30 cap 03/04/17 02/23/18 History Aspirin [Adult Aspirin Regimen] 81 mg PO DAILY 02/22/18 02/22/18 History Benztropine [Cogentin] 1 mg PO HS PRN 02/22/18 02/23/18 History Calcium 600 + D [Caltrate + D] 1 tab PO DAILY 02/22/18 02/22/18 History Celecoxib [Celecoxib] 200 mg PO DAILY 02/22/18 02/23/18 History Hydrocodone/APAP 10/325 [[place] 1 tab PO Q6H PRN 02/22/18 02/23/18 History 10/325] Ibuprofen 400 mg PO Q4H PRN 02/22/18 02/22/18 History Lisinopril [Prinivil] 10 mg PO DAILY 02/22/18 02/23/18 History Memantine HCl [Memantine HCl] 5 mg PO BID 02/22/18 02/23/18 History Vits #93/Iron Fum/FA 1 each PO DAILY 02/22/18 02/22/18 History [ Formula Tablet] Promethazine Tab [Phenergan Tab] 25 mg PO Q6H PRN 02/22/18 02/23/18 History Sucralfate [Carafate] 1 gm PO HS 02/22/18 02/22/18 History Vit C/E/Zn/Coppr/Lutein/Zeaxan 1 each PO DAILY 02/22/18 02/22/18 History [Preservision Areds 2 Softgel] buPROPion HCl [Bupropion HCl Sr] 150 mg PO BID 02/22/18 02/23/18 History clonazePAM [Clonazepam] 0.5 mg PO QID PRN 02/22/18 02/23/18 History OLANZapine [Olanzapine] 30 mg PO HS 02/23/18 02/23/18 History Allergies Allergy/AdvReac Type Severity Reaction Status Date / Time shellfish derived Allergy Unknown HIVES Verified 02/22/18 17:03 Review of Systems 10-point ROS: negative except for HPI and the following: - General General: Present: night sweats - Cardiovascular Cardiovascular: Present: other (dizziness) - Respiratory Respiratory: Present: cough - Musculoskeletal Musculoskeletal: Present: back pain (chronic) - Vital Signs Last Vital Signs Temp 99.4 F 02/23/18 15:27 Pulse 96 02/23/18 15:27 Resp 16 02/23/18 15:27 BP 161/72 H 02/23/18 15:27 Pulse Ox 93 02/23/18 15:27 - Laboratory Result Diagrams: 02/23/18 04:39 02/23/18 04:39
[2018-02-23] MEDS ORDERED: ERTAPENEM 1 G in NS 100 ML IV ONE (15:57)
[2018-02-23] MEDS ORDERED: SUGAMMADEX 200mg/2ml INJECTION IVP ONE (17:23)
[2018-02-23] MEDS ORDERED: ONDANSETRON 4 MG/2 ML INJECTION IVP PRN (17:48)
[2018-02-23] MEDS ORDERED: DiphenhydrAMINE 50 MG/ML INJECTION IVP PRN (17:48)
--- NOTE | 2018-02-23 17:49 | Anesthesia Postoperative Note ---
- Date and Time Date: 02/23/18 Time: 17:48 - Status Patient Participated in Evaluation: Patient Participated in Person Vital Signs: Temperature 99.4 F 02/23/18 15:27 Pulse Rate 96 02/23/18 15:27 Respiratory Rate 16 02/23/18 15:27 Blood Pressure 161/72 H 02/23/18 15:27 Pulse Oximetry 93 02/23/18 15:27 Respiratory Function: Airway Patent Cardiovascular Function: Regular Pulse EKG: Sinus Rhythm Mental Status: Alert and Oriented Pain Intensity: 0 Hydration: IV Infusing Complications During Recover: None Apparent - Follow-Up Instructions Instructions: Per Surgeon
[2018-02-23] MEDS: HYDROMORPHONE 2 MG/ML INJECTION IVP PRN ×2 (17:58→18:11)
--- NOTE | 2018-02-23 18:03 | General Surgery Procedure Note ---
Date of Procedure: 02/23/18 Surgeon: Suma Anesthesia: General Inhalation Gases ASA Score: 3, E Postoperative Diagnosis: SBO secondary to internal hernia, internal hernia secondary to adhesions, intraabdominal adhesions Procedure: Exploratory laparotomy, release of small bowel obstruction secondary to internal hernia, adhesiolysis x 45 minutes.
[2018-02-23] MEDS ORDERED: MORPHINE SULFATE 4mg INJECTION IVP PRN (18:23)
[2018-02-23] MEDS: PANTOPRAZOLE 40 MG INJECTION IVP SCH (20:31)
[2018-02-23] MEDS: KETOROLAC 15 MG/ML INJECTION IVP PRN (20:52)
[2018-02-23] MEDS: MORPHINE PCA 30 MG/30 ML SYRINGE IV PRN (21:55)
[2018-02-24] MEDS: METOCLOPRAMIDE 10mg/2ml INJECTION IVP SCH ×4 (03:03→21:07)
[2018-02-24] MEDS: NS 1,000 ML IV SCH ×2 (07:39→17:56)
[2018-02-24] MEDS: NS with KCL 20 mEq 1,000 ML IV SCH (07:47)
--- NOTE | 2018-02-24 08:10 | XRay Report ---
Indication: VERIFICATION OF NG TUBE PLACEMENT PROCEDURE: XR abdomen 1V: Encounter: Initial Comparison: February 23, 2018 at 1149 Findings: Nasogastric tube is kinked in the GE junction region and coils along the lesser curvature of the stomach. The tip projects over the cardia region of the stomach. Lung bases are grossly clear. Dilated gas-filled colon. Impression: Nasogastric tube is kinked in the GE junction region. Recommend clinical correlation for tube function. There is a preliminary report by virtual radiologic. .
--- NOTE | 2018-02-24 08:11 | XRay Report ---
Indication: NG TUBE VERIFICATION PROCEDURE: XR abdomen 1V: Encounter: Initial Comparison: February 23, 2018 at 1019 Findings: Nasogastric tube is coiled upon itself in the lower thoracic esophagus. Tip projects over the T10 level. Dilated gas-filled loops of colon are again noted. Impression: Nasogastric tube tip in the lower thoracic esophagus. Recommend replacement or repositioning. .
[2018-02-24] MEDS: PANTOPRAZOLE 40 MG INJECTION IVP SCH ×2 (08:15→21:07)
[2018-02-24] MEDS: ENOXAPARIN 40 MG/0.4 ML INJECTION SQ SCH (08:17)
--- NOTE | 2018-02-24 10:31 | Progress Note ---
- Date 02/24/18 Subjective: F/U: POD #1 exploratory laporatory with release of small bowel obstruction secondary to internal hernia with Dr. Moise on 02/23/18. Reva is seen today while resting in bed with her family at the bedside. Patient is very cheerful on exam but complains of severe pain rating 8/10 which she states is worse than when she was admitted. She denies any other complaints or concerns. No chest pain, shortness of breath, abdominal pain, nausea, vomiting or dysuria. She continues to have an NG tube with suction in place which she is tolerating well. She is eager to be able to drink water. She continues to require 0.5L oxygen via NC with O2 95%. No cough, congestion or dyspnea. Labs this morning revealed new leukocytosis (WBC 11.9) most likely reactive following her surgery as she remains afebrile. Hemoglobin stable at 11.7 and electrolytes unremarkable. Objective Vital signs: Temperature 99.4 F 02/24/18 07:29 Pulse Rate 100 02/24/18 07:29 Respiratory Rate 16 02/24/18 07:42 Blood Pressure 152/66 H 02/24/18 07:29 Pulse Oximetry 95 02/24/18 09:11 Height/Weight/BMI: Height 5 ft 3 in Weight 143 lb 15.39 oz Body Mass Index 24.9 Comments: Resting in bed with family at the bedside; cheerful disposition and in no acute distress. - Constitutional Present: no acute distress, well nourished, well developed, cooperative - Routine HEENT Exam Head: Present: normocephalic, atraumatic Eye: Present: PERRL. Absent: conjunctival icterus ENT: Present: mucous membranes dry Comments: NG tube present on suction and draining well. - Routine Respiratory Exam Present: CTA bilaterally. Absent: respiratory distress, wheezes - Routine Cardiovascular Exam Present: RRR, S1, S2 - Routine Abdominal Exam Present: soft, normoactive bowel sounds, tenderness, distended - Routine Extremities Exam Present: no edema, full ROM, pulses intact Comments: SCDs in place. - Routine Back/Spine/Pelvis Exam Comments: Unable to assess due to abdominal pain. - Routine Musculoskeletal Exam Musculoskeletal: Present: no clubbing or cyanosis, moving extremities well - Routine Skin Exam Present: dry, warm Comments: afebrile. - Routine Neurological Exam Present: alert, moving all extremities, hearing grossly intact, normal speech - Routine Lymphatic Exam Lymphatic: Absent: lymphedema - Routine Psychiatric Exam Present: cooperative Results - Labs CBC & Chem 7: 02/24/18 04:26 02/24/18 04:26 Assessment and Plan (1) SBO (small bowel obstruction) Current visit: Yes Status: Acute Assessment and Plan: Will place to the on NPO, IVF, morphine for pain control, gen surgery has been consulted. no sign of pancreatitis, recheck last in am, pt refused NG tube placement but pt does seem in stable condition in no distress. Assessment: S/P exploratory laparotomy with release of small bowel obstruction secondary to internal hernia and adhesiolysis, Dr. Moise, 02/23/18. Acute generalized abdominal pain with nausea. Leukocytosis, not present on admission. Hypercalcemia, present on admission - resolved. Anemia. Hypertension. History of alcohol and substance abuse. Macular degeration. GERD. Barretts esophagus. Chronic constipation. Gastroparesis, severe. History of duodenal ulceration. Gastritis. Hemorrhoids. History of pancreatitis secondary to alcohol abuse. Mild periportal liver fibrosis - 10/2008. Osteoarthritis. Bipolar, mixed. Depression. PTSD. History of suicidal ideation with prior attempt - 2002. Chronic back pain with degenerative disc disease. History of acute blood loss anemia requiring blood transfusion. Hiatal hernia. Plan - 02/24/18 POD #1 - S/P exploratory laparotomy with release of small bowel obstruction secondary to internal hernia and adhesiolysis, Dr. Moise, 02/23/18. Continue NG tube with suction and surgical cares per Dr. Moise. Continue toradol and morphine as needed for pain control. Morphine BOOKS SALESPERSON available. Zofran and reglan as needed for nausea. Continue NS 100/hr for gentle hydration while patient remains NPO. Continue to monitor urinary output and daily weight closely for signs of fluid overload. Echocardiogram in 2010 was unremarkable. Continue to hold oral home medications as patient is NPO. Will resume as soon as diet is advanced per surgery. Blood pressure has been slightly elevated - systolic 150s. Home lisinopril on hold Continue to monitor blood pressure closely. Significant psychiatric history. Monitor closely for signs of agitation, worsening depression or anxiety as home medications remain on hold. Ativan 0.5mg Q6H PRN anxiety. Protonix 40mg IV BID for history of GERD, gastritis, ulcerations and Reyes esophagus. SCDs adn Lovenox for DVT prophylaxis. Recheck labs in AM to monitor blood counts, electrolytes and renal function. Recommend initiation of ambulation and/or PT as soon as surgery feels patient is able to maintain strength and functional abilities. 02/24/2018-8:20 PM-I examined the patient independently. I reviewed this chart, the patient history, and the CARBONATION EQUIPMENT OPERATOR's/PA's documented findings as above. We discussed and formulated the assessment and plan as above with the additions below.-Dr. Zamorano The patient was seen earlier this evening. She had several family members present. She states she's feeling better than yesterday but continues to have some abdominal pain. She denies any nausea. She denies any shortness of breath. She denies any chest pain. She has had a little bit of flatus. No bowel movement. She has Landis catheter in place. On exam she is alert and in no acute distress. Mood seems upbeat. Chest is clear to auscultation. Cardiovascular reveals a regular rate and rhythm. Abdomen is soft, moderately distended, with hypoactive bowel sounds. Abdomen is tender throughout. Extremities are free of edema. Impression and plan Small bowel obstruction secondary to internal hernia, postop day 1 status post lysis of adhesions. Patient has an NG tube in place and may have ileus from recent surgery. She did not require bowel resection. She continues on morphine BOOKS SALESPERSON for pain control. I did encourage her to continue walking in the halls with assistance and using her incentive spirometry. Regarding her history of bipolar disorder, depression and PTSD-mood appears to be doing fairly well at this time. Patient denies any difficulties with mood currently. Resume oral medications as soon as NG is out and allowed to take oral meds. Discussed today with Dr. Moise. DVT Prophylaxis: SCD's, Lovenox GI Prophylaxis: Protonix Resuscitation Status: Full Code - Time spent with patient Time with patient PN: 35 minutes - Physician Narrative Physician: Ivis Zamorano MD Narrative: Date: 02/24/18 Time: 1021 Hospital Course Summary Disclaimer: The visit summary below is not to be considered part of the above Progress Note. Hospital Course: Plan - 02/23/18 Admit to inpatient status under the hospitalist service. Will consult Dr. Moise who is on-call for Dr. Verdugo. Patient initially refused placement of NG tube on admission but is willing to attempt placement now. Attempt to place NG now. Maintain NPO status. LR 100cc/hr initiated on admission. Will change to NS with KCl at 100cc/hr. Monitor urinary output and daily weight closely for signs of fluid overload. Echocardiogram in 2010 was unremarkable. Home meds were unable to be verified on admission. Nursing to work on medication verification now. Will hold all oral medications. Monitor blood pressure closely - prior medication list noted lisinopril 10mg daily at home. Blood pressures remains stable. Patient tachycardiac on admission which has since resolved with pain medication and IV fluids. Continue to monitor. No history of tachycardia or arrhythmia. Significant psychiatric history. Monitor closely for signs of agitation, worsening depression or anxiety. Ativan 0.5mg Q6H PRN anxiety. Morphine PRN pain. Reglan 5mg IV Q6H scheduled for severe gastroparesis. Protonix 40mg IV BID for history of GERD, gastritis, ulcerations and Reyes esophagus. SCDs for DVT prophylaxis. Upon discharge, patient's care will be returned to her PCP, Dr. Paz. Impression and plan per Dr. Zamorano. Small bowel obstruction -Reading on CT scan this morning shows acute high-grade or complete small bowel obstruction which appears to be due to a region of mesenteric twisting in the central upper pelvis with recommendation for emergent surgical consultation. I did call and discuss history, CT report, lab findings, and exam findings with Dr. Moise and he stated he would be in to see the patient. Continue with current treatment for now with IV fluids, IV morphine, NG placement, nothing by mouth status. Continue Protonix iv ordered for history of GERD and duodenal ulcers Regarding history of chronic pain, morphine has been ordered as needed for pain Regarding history of hypertension, lisinopril is on hold. We'll monitor BP and give iv medication if needed. Regarding history of gastroparesis, Reglan was ordered Regarding history of bipolar disorder and PTSD-the patient's psychiatric medications are on hold including olanzapine, clonazepam, bupropion and Cogentin. Will give lorazepam IV as needed. At this time, patient is not exhibiting any psychiatric difficulties. We'll consult psychiatry if she develops mood difficulties. Plan - 02/24/18 POD #1 - S/P exploratory laparotomy with release of small bowel obstruction secondary to internal hernia and adhesiolysis, Dr. Moise, 02/23/18. Continue NG tube with suction and surgical cares per Dr. Moise. Continue toradol and morphine as needed for pain control. Morphine BOOKS SALESPERSON available. Zofran and reglan as needed for nausea. Continue NS 100/hr for gentle hydration while patient remains NPO. Continue to monitor urinary output and daily weight closely for signs of fluid overload. Echocardiogram in 2010 was unremarkable. Continue to hold oral home medications as patient is NPO. Will resume as soon as diet is advanced per surgery. Blood pressure has been slightly elevated - systolic 150s. Home lisinopril on hold Continue to monitor blood pressure closely. Significant psychiatric history. Monitor closely for signs of agitation, worsening depression or anxiety as home medications remain on hold. Ativan 0.5mg Q6H PRN anxiety. Protonix 40mg IV BID for history of GERD, gastritis, ulcerations and Reyes esophagus. SCDs adn Lovenox for DVT prophylaxis. Recheck labs in AM to monitor blood counts, electrolytes and renal function. Recommend initiation of ambulation and/or PT as soon as surgery feels patient is able to maintain strength and functional abilities.
--- NOTE | 2018-02-24 10:50 | Consultation ---
DATE OF CONSULTATION 02/23/2018 CONSULTING PHYSICIAN West Moise MD (covering for Dr. Valenzuela) REQUESTING PHYSICIAN Dr. Ivis Zamorano REASON FOR CONSULTATION Small bowel obstruction. IMPRESSION 1. Small bowel obstruction - potentially complete small bowel obstruction based on CT findings. 2. 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 3. Gastroparesis - present on admission. 4. Bipolar disorder. 5. Depression. 6. Anxiety with panic attacks. PLAN 1. I did discuss the situation with Karin, her son, and a friend. Given her CT findings and her history in October of what sounds to be volvulus of the bowel, I did recommend exploratory laparotomy today. I explained that observation may lead to compromise of the blood supply of the bowel and potential extensive bowel necrosis that may lead to . Following discussion of the procedure she did wish to proceed with exploratory laparotomy. 2. Continue n.p.o. with NG tube decompression. 3. Invanz preoperatively. HISTORY OF PRESENT ILLNESS Karin is a 67-year-old female patient who has seen Dr. Verdugo within the last year for an esophagogastroduodenoscopy for Reyes's surveillance. She also has a recent history of hospitalization in [place], [place] in October of this year. The hospitalization had been for what sounds to be a small bowel volvulus that did require exploratory laparotomy and segmental small bowel resection. Her primary care physician is Dr. Paz . On , 02/20/2018 , she developed "real bad" abdominal pain. She described it as sharp in nature and rated it 7/10 in severity. Her pain was moving around throughout the abdomen to multiple locations. It also radiated into her back. She had some pain there constantly but it was better at times and then worsened to the more sharp pain. On Saturday, she continued to have pain. She was not hungry but was drinking soda and iced tea. She did not have any nausea or vomiting. On Saturday, her pain had increased to 8/10 in severity. She said it was so horrendous that she had to go to the emergency department. Her pain was worse when she was standing up. Overnight after admission to the hospital, she felt like she slept fairly well. Her pain is only 5/10 in severity if she is resting. She does note significant bloating of the abdomen. Today she did have three liquid stools over the period of eight minutes. Each of the stools was moderate in amount. She still reports worsening pain if she is upright. PAST MEDICAL HISTORY, PAST SURGICAL HISTORY, SOCIAL HISTORY, FAMILY HISTORY, ALLERGIES, MEDICATIONS, REVIEW OF SYSTEMS, LABORATORY DATA, VITAL SIGNS See electronic consultation note. PHYSICAL EXAMINATION GENERAL: The patient is awake and alert, in no acute distress. HEENT: Sclerae clear. Extraocular muscles intact. NECK: Supple with a midline trachea. No lymphadenopathy or thyromegaly are noted. HEART: Regular rate and rhythm. LUNGS: Clear to auscultation bilaterally. ABDOMEN: Soft, tender more the lower quadrants than the upper abdomen. She does have some diffuse tenderness throughout. There is no guarding or rebound noted. No masses or fluid are noted. EXTREMITIES: No clubbing, cyanosis or edema. NEURO: Cranial nerves II-XII are grossly intact. PSYCHIATRIC: Normal mood and affect. IMAGING CT scan of the abdomen and pelvis was personally reviewed by me along with the final radiology report from [facility]. The scan showed dilated loops of small bowel as well as other areas of decompressed small bowel. There did appear to be some swelling of the mesentery in the lower midabdomen amongst the dilated bowel loops. There was air in the colon. PATIENT EDUCATION The details, risks and benefits of exploratory laparotomy were discussed with the patient, her son, and her friend. The discussion included, but was not limited to, bleeding, infection, intraabdominal abscess formation, possible need for bowel resection, possible need for ostomy creation, possible anastomotic leak, possible recurrent volvulus in the future, and complications of anesthesia. After she asked questions, she did wish to proceed with an operation today. MER
[2018-02-24] MEDS: KETOROLAC 15 MG/ML INJECTION IVP PRN (11:05)
[2018-02-24] MEDS: MORPHINE PCA 30 MG/30 ML SYRINGE IV PRN (13:31)
[2018-02-25] MEDS: METOCLOPRAMIDE 10mg/2ml INJECTION IVP SCH ×4 (04:08→21:42)
[2018-02-25] MEDS: NS 1,000 ML IV SCH (04:40)
[2018-02-25] MEDS ORDERED: DEXTROSE 50% SYRINGE 50ml (1 AMP) IVP PRN (07:59)
[2018-02-25] MEDS: MORPHINE PCA 30 MG/30 ML SYRINGE IV PRN (08:39)
--- NOTE | 2018-02-25 09:38 | Operative Note ---
DATE OF OPERATION 02/23/2018 SURGEON West Moise MD HOOK UP See Verdugo MD PREOPERATIVE DIAGNOSIS Small bowel obstruction from possible volvulus. POSTOPERATIVE DIAGNOSES 1. Small bowel obstruction secondary to an internal hernia. 2. Internal hernia secondary to adhesions. 3. Intraabdominal adhesions. 4. Serosal tear of the jejunum incidental to adhesiolysis. PROCEDURE 1. Exploratory laparotomy. 2. Release of small bowel obstruction due to internal hernia. 3. Adhesiolysis x 45 minutes. 4. Repair of serosal injury of the jejunum that was incidental to adhesiolysis. ANESTHESIA General ASA CLASS 3E INDICATIONS The patient is a 67-year-old female who had a history of a bowel problem in October 2017 that was treated in [place]. The patient said that she had had a "twisted bowel". She presented to the emergency department yesterday and was admitted for a bowel obstruction. CT overread this morning had shown possible volvulus within the pelvis given the appearance of mesenteric swirling. Laparotomy had been recommended to her. FINDINGS There was an internal hernia created by an adhesion from the terminal ileum to the mesentery of the sigmoid colon. It was a rather dense and thick adhesion. It appeared to be the source of the transition point of her bowel obstruction. Other multiple areas of intraabdominal adhesions were noted including some adhesions of the jejunum to the peritoneum of the retroperitoneum. No ischemic bowel was noted. The small bowel mesentery was very broad-based and a lengthy which led to a very highly mobile small bowel. The colon was also mobile. The appendix was inspected and was grossly normal. DESCRIPTION OF PROCEDURE After informed consent was obtained, the patient was taken to the operating room and placed in the supine position. General anesthesia was administered by the anesthesia team. The patient's abdomen was then prepped and draped in usual sterile fashion. The patient's prior midline incision was reopened with a 10 blade scalpel. Electrocautery was used to dissect down through the subcutaneous tissue. The fascia was divided with cautery at the upper aspect of her prior incision and the peritoneal cavity was entered. Underlying omental adhesions were taken down using blunt dissection and cautery. With a finger inserted beneath the fascia, the remainder of the fascia was opened with cautery. An Piter wound protector was then inserted to protect the subcutaneous space and allow for some retraction. The abdomen was then explored. The adhesion within the left pelvis was noted. It was brought up and inspected. There did appear to be some twisting at this area and the terminal ileum was withdrawn from the internal hernia. The adhesion was divided in its midportion with cautery. This did appear to be the area of the actual small bowel obstruction. The small bowel was then run from the terminal ileum to the ligament of Treitz. As interloop adhesions were encountered, they were divided with cautery. Within the left posterior abdomen, there was an area of dense adhesions to the peritoneum of the retroperitoneum and left colon mesentery. These adhesions were divided sharply with Metzenbaum scissors until the jejunum was able to be fully mobilized. On reaching the ligament of Treitz , the bowel was run back again to the terminal ileum to inspect for damage to the bowel. There was a serosal tear that was incidental to the adhesiolysis. There was no evidence of perforation. The area was oversewn with 3-0 Vicryl Lembert sutures. Following repair of the area, the remainder of the bowel was inspected and was found to be free of injury or stricture. Contents of the small bowel were milked through the area of the transition point of the bowel obstruction and showed good flow into the colon. Biopsies of two of the adhesions of the sigmoid colon mesentery were taken since they were fairly thickened to be sure that another etiology was not involved. The patient's NG tube had been palpated in the stomach and was withdrawn slightly by Anesthesia so that it was in better position. The colon was inspected throughout the abdomen. Additional omental adhesions in the left upper quadrant were taken down with cautery. The small bowel was replaced into the abdomen in a more anatomic position. After 45 minutes total of adhesiolysis had been performed, it was deemed that there was not further need of surgical care, so the omentum was placed back over the bowel loops and the fascia was closed with running #1 PDS sutures. After hemostasis in the subcutaneous tissue was assured, the skin was closed with a skin stapler. The patient tolerated the procedure well. Please note Dr. Verdugo was present throughout all critical portions of the case and offered critical assistance to expose the intraabdominal adhesions and allow for adhesiolysis. MER
[2018-02-25] MEDS: ENOXAPARIN 40 MG/0.4 ML INJECTION SQ SCH (09:41)
[2018-02-25] MEDS: D5-1/2NS with KCL 20mEq 1,000 ML IV SCH ×2 (09:41→20:11)
[2018-02-25] MEDS: PANTOPRAZOLE 40 MG INJECTION IVP SCH ×2 (09:43→21:42)
--- NOTE | 2018-02-25 11:32 | Progress Note ---
- Date 02/25/18 Subjective: Reva is seen this morning while resting in bed. She continues to complain of severe abdominal pain, though appears in no acute distress or discomfort. She denies any fevers or chills. No chest pain, shortness of breath, nausea or vomiting. POD #2. Nursing reports that she has been refusing to ambulate other than to the bathroom but on exam, she states she is will to walk more. Blood pressure remains elevated. Leukocytosis resolved. Hemoglobin slightly decreased at 10.3. BMP unremarkable. She was noted to have hypoglycemia (Glu 52 ) this morning which was improved with the addition of D5 1/2 NS with KCl this morning. No history of diabetes or hypoglycemia. Patient has been NPO since . Objective Vital signs: Temperature 98.3 F 02/25/18 11:07 Pulse Rate 96 02/25/18 11:07 Respiratory Rate 20 02/25/18 11:07 Blood Pressure 162/71 H 02/25/18 11:07 Pulse Oximetry 93 02/25/18 11:07 Rhythm: Normal Sinus Rhythm Height/Weight/BMI: Height 5 ft 3 in Weight 141 lb 8.588 oz Body Mass Index 24.9 Comments: resting in bed. - Constitutional Present: no acute distress, well nourished, well developed, cooperative - Routine HEENT Exam Head: Present: normocephalic, atraumatic Eye: Present: PERRL. Absent: conjunctival icterus ENT: Present: mucous membranes moist, oropharynx clear Comments: NG tube present. - Routine Respiratory Exam Present: CTA bilaterally. Absent: respiratory distress, wheezes Comments: Currently breathing easily on room air. Has required occasional low rate oxygen for decreased SAO2. - Routine Cardiovascular Exam Present: RRR, S1, S2 - Routine Abdominal Exam Present: soft, distended Comments: Generalized tenderness with gentle palpation. Hypoactive bowel sounds. - Routine Extremities Exam Present: no edema, full ROM, pulses intact - Routine Back/Spine/Pelvis Exam Back/Spine: Present: full ROM. Absent: vertebral tenderness - Routine Musculoskeletal Exam Musculoskeletal: Present: no clubbing or cyanosis, moving extremities well - Routine Skin Exam Present: intact, dry, warm Comments: Afebrile. - Routine Neurological Exam Present: alert, oriented X3, moving all extremities, hearing grossly intact, normal speech - Routine Lymphatic Exam Lymphatic: Absent: lymphedema - Routine Psychiatric Exam Present: cooperative Results - Labs CBC & Chem 7: 02/25/18 04:05 02/25/18 04:05 Assessment and Plan (1) SBO (small bowel obstruction) Current visit: Yes Status: Acute Assessment and Plan: Will place to the on NPO, IVF, morphine for pain control, gen surgery has been consulted. no sign of pancreatitis, recheck last in am, pt refused NG tube placement but pt does seem in stable condition in no distress. Assessment: S/P exploratory laparotomy with release of small bowel obstruction secondary to internal hernia and adhesiolysis, Dr. Moise, 02/23/18. Acute generalized abdominal pain with nausea. Leukocytosis, not present on admission. Hypercalcemia, present on admission - resolved. Anemia. Hypertension. History of alcohol and substance abuse. Macular degeration. GERD. Barretts esophagus. Chronic constipation. Gastroparesis, severe. History of duodenal ulceration. Gastritis. Hemorrhoids. History of pancreatitis secondary to alcohol abuse. Mild periportal liver fibrosis - 10/2008. Osteoarthritis. Bipolar, mixed. Depression. PTSD. History of suicidal ideation with prior attempt - 2002. Chronic back pain with degenerative disc disease. History of acute blood loss anemia requiring blood transfusion. Hiatal hernia. Plan - 02/25/18 POD #2 - S/P exploratory laparotomy with release of small bowel obstruction secondary to internal hernia and adhesiolysis, Dr. Moise, 02/23/18. Continue NG tube with suction and surgical cares per Dr. Moise. Patient continues to complain of severe pain though appears in no acute distress. Consider weaning [employer] pump with PRN morphine and scheduled toradol. Nursing reports that patient has been refusing to ambulate. Discussed importance of ambulation with patient and she states she is willing to walk more. Will consult PT for further evaluation and treatment plan to encourage mobility. Zofran and Reglan as needed for nausea. Hypoglycemia this AM (Glu 52). No history of diabetes or hypoglycemia. IV fluids changed to D5 1/2 NS with KCl at 100 cc/hr with improvement. Monitor blood sugars closely. Patient has been NPO since 02/22/18. Continue to monitor urinary output and daily weight closely for signs of fluid overload. Echocardiogram in 2010 was unremarkable. Continue to hold oral home medications as patient is NPO. Will resume as soon as diet is advanced per surgery and NG is removed. Blood pressure remains elevated. Home lisinopril on hold Continue to monitor blood pressure closely. Hydralazine 5mg IV Q6 PRN SBP >160. Significant psychiatric history. Monitor closely for signs of agitation, worsening depression or anxiety as home medications remain on hold. Ativan 0.5mg Q6H PRN anxiety. Protonix 40mg IV BID for history of GERD, gastritis, ulcerations and Reyes esophagus. SCDs and Lovenox for DVT prophylaxis. Continue to encourage SI for pulmonary toileting. Wean oxygen as able. Recheck labs in AM to monitor blood counts, electrolytes and renal function. 02/25/2018-9 PM-I examined the patient independently. I reviewed this chart, the patient history, and the QUILLER HAND's/PA's documented findings as above. We discussed and formulated the assessment and plan as above with the additions below.-Dr. Zamorano Patient was seen earlier today in her room. She stated she was feeling better. She was continuing to have some abdominal pain. She was using MILIT[employer] SCI[employer] INSTRUCTOR for pain control. She was passing flatus. She denied any nausea. She had been up walking in the halls. She states her mood is doing fine. On exam she is alert and oriented and in no acute distress. Chest is clear to auscultation. Cardiovascular reveals a regular rate and rhythm. Abdomen is soft , mildly tender throughout, positive bowel sounds. Extremities are free of edema. Impression and plan Overall, the patient is doing well status post surgery for small bowel obstruction. Patient did have hypoglycemia this morning and was started on IV fluids with dextrose. Accu-Cheks were ordered. The patient was asymptomatic when she had low blood sugar. Resume home medicines when able to take by mouth. Discussed today with Dr. Moise. He expects she will likely be able to start clear liquids tomorrow. We'll not start PPN at this time. DVT Prophylaxis: SCD's, Lovenox GI Prophylaxis: Protonix Resuscitation Status: Full Code - Time spent with patient Time with patient PN: 30 minutes - Physician Narrative Physician: Ivis Zamorano MD Narrative: Date: 02/25/18 Time: 1128 Hospital Course Summary Disclaimer: The visit summary below is not to be considered part of the above Progress Note. Hospital Course: Plan - 02/23/18 Admit to inpatient status under the hospitalist service. Will consult Dr. Moise who is on-call for Dr. Verdugo. Patient initially refused placement of NG tube on admission but is willing to attempt placement now. Attempt to place NG now. Maintain NPO status. LR 100cc/hr initiated on admission. Will change to NS with KCl at 100cc/hr. Monitor urinary output and daily weight closely for signs of fluid overload. Echocardiogram in 2010 was unremarkable. Home meds were unable to be verified on admission. Nursing to work on medication verification now. Will hold all oral medications. Monitor blood pressure closely - prior medication list noted lisinopril 10mg daily at home. Blood pressures remains stable. Patient tachycardiac on admission which has since resolved with pain medication and IV fluids. Continue to monitor. No history of tachycardia or arrhythmia. Significant psychiatric history. Monitor closely for signs of agitation, worsening depression or anxiety. Ativan 0.5mg Q6H PRN anxiety. Morphine PRN pain. Reglan 5mg IV Q6H scheduled for severe gastroparesis. Protonix 40mg IV BID for history of GERD, gastritis, ulcerations and Reyes esophagus. SCDs for DVT prophylaxis. Upon discharge, patient's care will be returned to her PCP, Dr. Paz. Impression and plan per Dr. Zamorano. Small bowel obstruction -Reading on CT scan this morning shows acute high-grade or complete small bowel obstruction which appears to be due to a region of mesenteric twisting in the central upper pelvis with recommendation for emergent surgical consultation. I did call and discuss history, CT report, lab findings, and exam findings with Dr. Moise and he stated he would be in to see the patient. Continue with current treatment for now with IV fluids, IV morphine, NG placement, nothing by mouth status. Continue Protonix iv ordered for history of GERD and duodenal ulcers Regarding history of chronic pain, morphine has been ordered as needed for pain Regarding history of hypertension, lisinopril is on hold. We'll monitor BP and give iv medication if needed. Regarding history of gastroparesis, Reglan was ordered Regarding history of bipolar disorder and PTSD-the patient's psychiatric medications are on hold including olanzapine, clonazepam, bupropion and Cogentin. Will give lorazepam IV as needed. At this time, patient is not exhibiting any psychiatric difficulties. We'll consult psychiatry if she develops mood difficulties. Plan - 02/24/18 POD #1 - S/P exploratory laparotomy with release of small bowel obstruction secondary to internal hernia and adhesiolysis, Dr. Moise, 02/23/18. Continue NG tube with suction and surgical cares per Dr. Moise. Continue toradol and morphine as needed for pain control. Morphine [employer] available. Zofran and reglan as needed for nausea. Continue NS 100/hr for gentle hydration while patient remains NPO. Continue to monitor urinary output and daily weight closely for signs of fluid overload. Echocardiogram in 2010 was unremarkable. Continue to hold oral home medications as patient is NPO. Will resume as soon as diet is advanced per surgery. Blood pressure has been slightly elevated - systolic 150s. Home lisinopril on hold Continue to monitor blood pressure closely. Significant psychiatric history. Monitor closely for signs of agitation, worsening depression or anxiety as home medications remain on hold. Ativan 0.5mg Q6H PRN anxiety. Protonix 40mg IV BID for history of GERD, gastritis, ulcerations and Reyes esophagus. SCDs adn Lovenox for DVT prophylaxis. Recheck labs in AM to monitor blood counts, electrolytes and renal function. Recommend initiation of ambulation and/or PT as soon as surgery feels patient is able to maintain strength and functional abilities. Plan - 02/25/18 POD #2 - S/P exploratory laparotomy with release of small bowel obstruction secondary to internal hernia and adhesiolysis, Dr. Moise, 02/23/18. Continue NG tube with suction and surgical cares per Dr. Moise. Patient continues to complain of severe pain though appears in no acute distress. Consider weaning [employer] pump with PRN morphine and scheduled toradol. Nursing reports that patient has been refusing to ambulate. Discussed importance of ambulation with patient and she states she is willing to walk more. Will consult PT for further evaluation and treatment plan to encourage mobility. Zofran and Reglan as needed for nausea. Hypoglycemia this AM (Glu 52). No history of diabetes or hypoglycemia. IV fluids changed to D5 1/2 NS with KCl at 100 cc/hr with improvement. Monitor blood sugars closely. Patient has been NPO since 02/22/18. Continue to monitor urinary output and daily weight closely for signs of fluid overload. Echocardiogram in 2010 was unremarkable. Continue to hold oral home medications as patient is NPO. Will resume as soon as diet is advanced per surgery and NG is removed. Blood pressure remains elevated. Home lisinopril on hold Continue to monitor blood pressure closely. Hydralazine 5mg IV Q6 PRN SBP >160. Significant psychiatric history. Monitor closely for signs of agitation, worsening depression or anxiety as home medications remain on hold. Ativan 0.5mg Q6H PRN anxiety. Protonix 40mg IV BID for history of GERD, gastritis, ulcerations and Reyes esophagus. SCDs and Lovenox for DVT prophylaxis. Continue to encourage SI for pulmonary toileting. Wean oxygen as able. Recheck labs in AM to monitor blood counts, electrolytes and renal function.
[2018-02-25] MEDS ORDERED: HYDRALAZINE 20 MG/ML INJECTION IVP PRN (11:42)
[2018-02-25] MEDS: KETOROLAC 15 MG/ML INJECTION IVP SCH ×3 (13:08→23:41)
[2018-02-26] MEDS: METOCLOPRAMIDE 10mg/2ml INJECTION IVP SCH ×2 (03:04→09:53)
[2018-02-26] MEDS: KETOROLAC 15 MG/ML INJECTION IVP SCH (05:56)
[2018-02-26] MEDS: D5-1/2NS with KCL 20mEq 1,000 ML IV SCH ×2 (05:57→16:18)
[2018-02-26] MEDS: PANTOPRAZOLE 40 MG INJECTION IVP SCH ×2 (09:54→20:27)
[2018-02-26] MEDS: ENOXAPARIN 40 MG/0.4 ML INJECTION SQ SCH (09:54)
[2018-02-26] MEDS ORDERED: KETOROLAC 15 MG/ML INJECTION IVP PRN (10:11)
[2018-02-26] MEDS ORDERED: METOCLOPRAMIDE 10mg/2ml INJECTION IVP PRN (10:12)
--- NOTE | 2018-02-26 10:14 | Progress Note ---
- Date 02/26/18 Subjective: Reva is seen this morning while resting in bed. Her abdominal pain is 5/10 currently. Nurse reports pt has consistently rated her pain a 5 and is using the max dose of morphine through the [employer] pump despite education about only using it if she truly needs it. Nurse reports pt states she had a headache and used the morphine dose for that at one point. She feels she is improving. She denies any fevers or chills. No chest pain, shortness of breath, nausea or vomiting. POD #3. She has been walking and sitting up in the chair. She questions why the NG tube has been clamped. She had some nausea last night but none today. Passing gas. Objective Vital signs: Temperature 97.5 F 02/26/18 08:32 Pulse Rate 89 02/26/18 08:32 Respiratory Rate 18 02/26/18 08:32 Blood Pressure 153/81 H 02/26/18 08:32 Pulse Oximetry 94 02/26/18 08:32 Rhythm: Normal Sinus Rhythm Height/Weight/BMI: Height 1.6 m Weight 63.1 kg Body Mass Index 24.9 - Constitutional Present: no acute distress, well nourished, well developed - Routine HEENT Exam Head: Present: normocephalic, atraumatic - Routine Respiratory Exam Present: CTA bilaterally. Absent: wheezes - Routine Cardiovascular Exam Present: RRR, no murmur - Routine Abdominal Exam Present: soft, normoactive bowel sounds, tenderness (mild diffuse. Bandage over wound is intact and not removed at this time. ), non distended - Routine Extremities Exam Present: no edema, normal capillary refill - Routine Skin Exam Present: dry, warm - Routine Neurological Exam Present: alert - Routine Lymphatic Exam Lymphatic: Absent: adenopathy - Routine Psychiatric Exam Present: normal affect, cooperative Results - Labs CBC & Chem 7: 02/26/18 04:21 02/26/18 04:21 Assessment and Plan (1) SBO (small bowel obstruction) Current visit: Yes Status: Acute Assessment and Plan: Assessment: S/P exploratory laparotomy with release of small bowel obstruction secondary to internal hernia and adhesiolysis, Dr. Moise, 02/23/18. Acute generalized abdominal pain with nausea. Leukocytosis, not present on admission. Hypercalcemia, present on admission - resolved. Anemia. Hypertension. History of alcohol and substance abuse. Macular degeration. GERD. Barretts esophagus. Chronic constipation. Gastroparesis, severe. History of duodenal ulceration. Gastritis. Hemorrhoids. History of pancreatitis secondary to alcohol abuse. Mild periportal liver fibrosis - 10/2008. Osteoarthritis. Bipolar, mixed. Depression. PTSD. History of suicidal ideation with prior attempt - 2002. Chronic back pain with degenerative disc disease. History of acute blood loss anemia requiring blood transfusion. Hiatal hernia. Plan - POD #3 NG tube has been clamped since yesterday. Will allow sips and chips and resume her home lisinopril and psych meds. Further diet adv orders per surgery. Change reglan to PRN due to interaction with wellbutrin. DC morphine pump and change Toradol to PRN. Continue PRN morphine IV order. Continues on D5 1/2NS with KCl - sugars reviewed and are ok. Had BS of 52 yest am prompting the change to the D5. Blood pressure remains elevated. Home lisinopril on can be resumed given she has tolerated having the NG tube clamped. Hydralazine 5mg IV Q6 PRN SBP >160. Continue Protonix 40mg IV BID for history of GERD, gastritis, ulcerations and Reyes esophagus. Labs stable. DVT Prophylaxis: SCD's, Lovenox GI Prophylaxis: Protonix Resuscitation Status: Full Code - Physician Narrative Physician: Jessica Cha MD Narrative: Date: 02/26/18 Time: 1700 I have independently evaluated and examined this patient. I reviewed the chart, the patient's history, and the GRAPHICS SPECIALIST/PA's documented findings as above. We discussed and formulated the assessment and plan as above with additions as below: Mrs. Brooke reported no nausea or vomiting after NG has been clamped for 24 hours. She's been passing gas and has been ambulating without difficulty or lightheadedness. NAD, alert; respirations nonlabored Abdomen soft, minimally tender to palpation, bowel sounds present Discussed with Dr. Valenzuela-NG discontinued this afternoon, clear liquids initiated. Multiple home medications resumed including psychiatric medications, lisinopril , and Carafate slurry taken at bedtime. [place] liquid initiated due to patient concern that she may have difficulty swallowing pills. [employer] discontinued, oral morphine dose decreased. Hospital Course Summary Disclaimer: The visit summary below is not to be considered part of the above Progress Note. Hospital Course: 02/23/18 Admit to inpatient status under the hospitalist service. Will consult Dr. Moise who is on-call for Dr. Verdugo. Patient initially refused placement of NG tube on admission but is willing to attempt placement now. Attempt to place NG now. Maintain NPO status. LR 100cc/hr initiated on admission. Will change to NS with KCl at 100cc/hr. Monitor urinary output and daily weight closely for signs of fluid overload. Echocardiogram in 2010 was unremarkable. Home meds were unable to be verified on admission. Nursing to work on medication verification now. Will hold all oral medications. Monitor blood pressure closely - prior medication list noted lisinopril 10mg daily at home. Blood pressures remains stable. Patient tachycardiac on admission which has since resolved with pain medication and IV fluids. Continue to monitor. No history of tachycardia or arrhythmia. Significant psychiatric history. Monitor closely for signs of agitation, worsening depression or anxiety. Ativan 0.5mg Q6H PRN anxiety. Morphine PRN pain. Reglan 5mg IV Q6H scheduled for severe gastroparesis. Protonix 40mg IV BID for history of GERD, gastritis, ulcerations and Reyes esophagus. SCDs for DVT prophylaxis. Upon discharge, patient's care will be returned to her PCP, Dr. Paz. Impression and plan per Dr. Zamorano. Small bowel obstruction -Reading on CT scan this morning shows acute high-grade or complete small bowel obstruction which appears to be due to a region of mesenteric twisting in the central upper pelvis with recommendation for emergent surgical consultation. I did call and discuss history, CT report, lab findings, and exam findings with Dr. Moise and he stated he would be in to see the patient. Continue with current treatment for now with IV fluids, IV morphine, NG placement, nothing by mouth status. Continue Protonix iv ordered for history of GERD and duodenal ulcers Regarding history of chronic pain, morphine has been ordered as needed for pain Regarding history of hypertension, lisinopril is on hold. We'll monitor BP and give iv medication if needed. Regarding history of gastroparesis, Reglan was ordered Regarding history of bipolar disorder and PTSD-the patient's psychiatric medications are on hold including olanzapine, clonazepam, bupropion and Cogentin. Will give lorazepam IV as needed. At this time, patient is not exhibiting any psychiatric difficulties. We'll consult psychiatry if she develops mood difficulties. 02/24/18 POD #1 - S/P exploratory laparotomy with release of small bowel obstruction secondary to internal hernia and adhesiolysis, Dr. Moise, 02/23/18. Continue NG tube with suction and surgical cares per Dr. Moise. Continue toradol and morphine as needed for pain control. Morphine [employer] available. Zofran and reglan as needed for nausea. Continue NS 100/hr for gentle hydration while patient remains NPO. Continue to monitor urinary output and daily weight closely for signs of fluid overload. Echocardiogram in 2010 was unremarkable. Continue to hold oral home medications as patient is NPO. Will resume as soon as diet is advanced per surgery. Blood pressure has been slightly elevated - systolic 150s. Home lisinopril on hold Continue to monitor blood pressure closely. Significant psychiatric history. Monitor closely for signs of agitation, worsening depression or anxiety as home medications remain on hold. Ativan 0.5mg Q6H PRN anxiety. Protonix 40mg IV BID for history of GERD, gastritis, ulcerations and Reyes esophagus. SCDs and Lovenox for DVT prophylaxis. Recheck labs in AM to monitor blood counts, electrolytes and renal function. Recommend initiation of ambulation and/or PT as soon as surgery feels patient is able to maintain strength and functional abilities. 02/25/18 POD #2 Patient continues to complain of severe pain though appears in no acute distress. Consider weaning [employer] pump with PRN morphine and scheduled toradol. Nursing reports that patient has been refusing to ambulate. Discussed importance of ambulation with patient and she states she is willing to walk more. Will consult PT for further evaluation and treatment plan to encourage mobility. Zofran and Reglan as needed for nausea. Hypoglycemia this AM (Glu 52). No history of diabetes or hypoglycemia. IV fluids changed to D5 1/2 NS with KCl at 100 cc/hr with improvement. Monitor blood sugars closely. Patient has been NPO since 02/22/18. Continue to monitor urinary output and daily weight closely for signs of fluid overload. Echocardiogram in 2010 was unremarkable. Continue to hold oral home medications as patient is NPO. Will resume as soon as diet is advanced per surgery and NG is removed. Blood pressure remains elevated. Home lisinopril on hold Continue to monitor blood pressure closely. Hydralazine 5mg IV Q6 PRN SBP >160. Significant psychiatric history. Monitor closely for signs of agitation, worsening depression or anxiety as home medications remain on hold. Ativan 0.5mg Q6H PRN anxiety. Protonix 40mg IV BID for history of GERD, gastritis, ulcerations and Reyes esophagus. 02/26/18 POD #3 NG tube has been clamped since yesterday. Will allow sips and chips and resume her home lisinopril and psych meds. Further diet adv orders per surgery. Change reglan to PRN due to interaction with wellbutrin. DC morphine pump and change Toradol to PRN. Continue PRN morphine IV order. Continues on D5 1/2NS with KCl - sugars reviewed and are ok. Blood pressure remains elevated. Home lisinopril can be resumed given she has tolerated having the NG tube clamped. Hydralazine 5mg IV Q6 PRN SBP >160.
[2018-02-26] MEDS: LISINOPRIL 10 MG TABLET PO SCH (12:52)
[2018-02-26] MEDS ORDERED: HYDROCODONE/APAP 2.5mg-108mg/5ml ORAL LIQUID PO PRN (13:27)
--- NOTE | 2018-02-26 14:13 | Progress Note ---
DATE OF SERVICE 02/26/2018 FINDINGS Mrs. Brooke was seen today on rounds. She denied any element of significant abdominal pain. She states she has been passing flatus. She has been tolerating clear liquids that she has been taking in with the NG in place. PHYSICAL EXAM VITAL SIGNS: Afebrile, normotensive. Please refer to EMR. CHEST: Clear to auscultation bilaterally. HEART: Regular rate and rhythm. Normal S1 and S2 without gallops, murmurs or clicks. ABDOMEN: Abdomen soft, nontender. Dressing was removed. There was some minimal serosanguineous drainage along her prior midline incision. No evidence for erythema. Palpation of the abdomen revealed it to be soft and for the most part nontender. LABORATORY/RADIOGRAPHIC EVALUATION The patient had a CBC today and her white count was 5.2. Hemoglobin is 10.9. CMP obtained and found to be without marked abnormalities. ASSESSMENT 67-year-old female status post exploratory laparotomy with lysis of adhesions secondary to small bowel obstruction. Patient currently doing well. PLAN DC NG. Will begin on clear liquids and advance to full liquids. Would otherwise continue with current care. Hopefully over the next 24 to 48 hours the patient's diet will be able to be advanced without difficulty and she will be able to be discharged at that time from the hospital. MER
--- NOTE | 2018-02-26 14:48 | Progress Note ---
DATE OF VISIT 02/24/2018 REASON FOR VISIT Postoperative followup. OBJECTIVE Karin has done well since her procedure. She is using her BATON TEACHER for pain control and nursing reports she is using a fairly large amount of the narcotic. She did not have any significant complaints today. OBJECTIVE VITAL SIGNS: Afebrile with stable vitals on room air. GENERAL: The patient is awake and alert, in no acute distress. ABDOMEN: Soft, appropriately tender. Her midline dressing is clean, dry and intact. IMPRESSION Postop day #1 status post exploratory laparotomy with release of incarcerated internal hernia causing bowel obstruction - appropriate clinical progress. PLAN 1. Continue Landis until tomorrow. 2. Continue BATON TEACHER for pain control while n.p.o. 3. Continue NG-tube suction. MTDD
--- NOTE | 2018-02-26 14:53 | Progress Note ---
DATE OF VISIT 02/25/2018 REASON FOR VISIT Postoperative followup. SUBJECTIVE Karin has some flatus. She has not had a bowel movement yet. She is still using her FAST FOOD ASSISTANT RESTAURANT MANAGER regularly. OBJECTIVE VITAL SIGNS: Afebrile with stable vitals on room air. GENERAL: The patient is awake and alert. She is seated in the chair in no acute distress. ABDOMEN: Soft, appropriately tender. Her midline incision has some bloody drainage on the overlying Telfa but the incision is intact. Her dressing was changed today. IMPRESSION Postop day #2 status post exploratory laparotomy with adhesiolysis and release of small bowel obstruction from internal hernia - appropriate clinical progress. PLAN 1. Clamp NG-tube today. 2. Her Landis catheter was removed. 3. I encouraged only p.r.n. use of her FAST FOOD ASSISTANT RESTAURANT MANAGER and told her that she should try to stretch her doses as long as possible. If NG-tube clamping is tolerated with sips and chips then her tube could be discontinued if residual is low and consideration of initiation of clear liquids could be made. 4. Dr. Valenzuela will be covering in my absence when I leave town tomorrow. MER
[2018-02-26] MEDS: ClonazePAM 0.5 MG TABLET PO PRN (16:23)
[2018-02-26] MEDS ORDERED: MORPHINE SULFATE 4mg INJECTION IVP PRN (17:03)
[2018-02-26] MEDS ORDERED: BENZTROPINE 1 MG TABLET PO PRN (17:03)
[2018-02-26] MEDS: BuPROPion SR 150mg (12HR) TABLET PO SCH (20:26)
[2018-02-26] MEDS ORDERED: SUCRALFATE 1gm/10ml ORAL LIQUID PO SCH (21:00)
[2018-02-26] MEDS ORDERED: OLANZapine 10 MG TABLET PO SCH (21:00)
[2018-02-26] MEDS: MEMANTINE 5 MG TABLET PO SCH (21:18)
[2018-02-27] MEDS: ClonazePAM 0.5 MG TABLET PO PRN ×3 (00:36→15:27)
[2018-02-27] MEDS: D5-1/2NS with KCL 20mEq 1,000 ML IV SCH ×2 (01:36→02:47)
[2018-02-27] MEDS: HYDROCODONE/APAP 2.5mg-108mg/5ml ORAL LIQUID PO PRN ×3 (03:46→15:27)
[2018-02-27] MEDS: BuPROPion SR 150mg (12HR) TABLET PO SCH (08:46)
[2018-02-27] MEDS: MEMANTINE 5 MG TABLET PO SCH (08:46)
[2018-02-27] MEDS: LISINOPRIL 10 MG TABLET PO SCH (08:46)
[2018-02-27] MEDS: PANTOPRAZOLE 40 MG INJECTION IVP SCH (08:46)
[2018-02-27] MEDS: ENOXAPARIN 40 MG/0.4 ML INJECTION SQ SCH (08:46)
[2018-02-27] MEDS: MAGNESIUM SULFATE 1gm PREMIX 1 GM/100 ML BAG IV SCH ×2 (09:54→11:01)
--- NOTE | 2018-02-27 12:06 | Progress Note ---
- Date 02/27/18 Subjective: Reva is seen this morning while sleeping. She arouses briefly with touch and voice stimuli but quickly falls back to sleep. Nursing reports that overall , the patient is doing well and feels she is improving. She has been ambulating and getting out of bed to the chair more. She tolerated clear liquids well and has advanced to full liquids without incident. BARREL POLISHER pump was discontinued with PRN morphine and toradol available. Home medications were restarted. Labs revealed mild hypokalemia (3.5) with hypomag (mg 1.2) which were replaced. Objective Vital signs: Temperature 98.7 F 02/27/18 07:27 Pulse Rate 80 02/27/18 07:27 Respiratory Rate 18 02/27/18 07:27 Blood Pressure 143/76 H 02/27/18 07:27 Pulse Oximetry 94 02/27/18 10:26 Rhythm: Normal Sinus Rhythm Height/Weight/BMI: Height 5 ft 3 in Weight 136 lb 7.458 oz Body Mass Index 24.9 Comments: Resting in bed. - Constitutional Present: no acute distress, well nourished, well developed, cooperative - Routine HEENT Exam Head: Present: normocephalic, atraumatic Eye: Present: PERRL. Absent: conjunctival icterus ENT: Present: mucous membranes moist, oropharynx clear - Routine Respiratory Exam Present: CTA bilaterally. Absent: respiratory distress, wheezes - Routine Cardiovascular Exam Present: RRR, S1, S2, murmur - Routine Abdominal Exam Present: soft, normoactive bowel sounds, distended - Routine Extremities Exam Present: no edema, pulses intact, normal capillary refill - Routine Musculoskeletal Exam Musculoskeletal: Present: no clubbing or cyanosis - Routine Skin Exam Present: intact, dry, warm Comments: Afebrile. - Routine Neurological Exam Present: hearing grossly intact, normal speech - Routine Lymphatic Exam Lymphatic: Absent: lymphedema - Routine Psychiatric Exam Present: cooperative Results - Labs CBC & Chem 7: 02/26/18 04:21 02/27/18 04:40 Assessment and Plan (1) SBO (small bowel obstruction) Current visit: Yes Status: Acute Assessment and Plan: Assessment: S/P exploratory laparotomy with release of small bowel obstruction secondary to internal hernia and adhesiolysis, Dr. Moise, 02/23/18. Acute generalized abdominal pain with nausea. Leukocytosis, not present on admission. Hypercalcemia, present on admission - resolved. Anemia. Hypertension. History of alcohol and substance abuse. Macular degeration. GERD. Barretts esophagus. Chronic constipation. Gastroparesis, severe. History of duodenal ulceration. Gastritis. Hemorrhoids. History of pancreatitis secondary to alcohol abuse. Mild periportal liver fibrosis - 10/2008. Osteoarthritis. Bipolar, mixed. Depression. PTSD. History of suicidal ideation with prior attempt - 2002. Chronic back pain with degenerative disc disease. History of acute blood loss anemia requiring blood transfusion. Hiatal hernia. Plan - POD #4 Overall, patient is making slow gains. Tolerated clear liquids and has advanced to full liquids without incident. Further diet orders per surgery. Home lisinopril and psych meds resumed. BARREL POLISHER pump discontinued with PRN medications available. Blood sugars improved and remained stable. D5 1/2 NS discontinued today. Will continue to monitor for hypoglycemia. Blood pressure improved with resuming of home lisinopril. Continue to monitor. Hydralazine 5mg IV Q6 PRN SBP >160. Continue Protonix 40mg IV BID for history of GERD, gastritis, ulcerations and Reyes esophagus. Hypokalemia and hypomag noted this AM. Will give KCl 20 mEq po x 1 dose now and Mag IV x 2 grams. Recheck labs in AM to monitor blood counts, electrolytes and renal function. Anticipate discharge in near future. DVT Prophylaxis: SCD's, Lovenox GI Prophylaxis: Protonix Resuscitation Status: Full Code - Time spent with patient Time with patient PN: 30 minutes - Physician Narrative Physician: Jessica Cha MD Narrative: Date: 02/27/18 Time: 1750 I have independently evaluated and examined this patient. I reviewed the chart, the patient's history, and the CANDY DIPPER HAND/PA's documented findings as above. We discussed and formulated the assessment and plan as above with additions as below: Doing well, advance diet to regular at lunch with good tolerance. No nausea or vomiting and reports having a bowel movement this afternoon. Anxious to discharge home due to 's illness. NAD, alert Abdomen soft, minimally tender to palpation, active bowel sounds Repeat magnesium 2.0 Dr. Valenzuela is cleared for discharge; please refer to discharge summary. Patient to follow-up with [facility] in approximately one week. Hospital Course Summary Disclaimer: The visit summary below is not to be considered part of the above Progress Note. Hospital Course: 02/23/18 Admit to inpatient status under the hospitalist service. Will consult Dr. Moise who is on-call for Dr. Verdugo. Patient initially refused placement of NG tube on admission but is willing to attempt placement now. Attempt to place NG now. Maintain NPO status. LR 100cc/hr initiated on admission. Will change to NS with KCl at 100cc/hr. Monitor urinary output and daily weight closely for signs of fluid overload. Echocardiogram in 2010 was unremarkable. Home meds were unable to be verified on admission. Nursing to work on medication verification now. Will hold all oral medications. Monitor blood pressure closely - prior medication list noted lisinopril 10mg daily at home. Blood pressures remains stable. Patient tachycardiac on admission which has since resolved with pain medication and IV fluids. Continue to monitor. No history of tachycardia or arrhythmia. Significant psychiatric history. Monitor closely for signs of agitation, worsening depression or anxiety. Ativan 0.5mg Q6H PRN anxiety. Morphine PRN pain. Reglan 5mg IV Q6H scheduled for severe gastroparesis. Protonix 40mg IV BID for history of GERD, gastritis, ulcerations and Reyes esophagus. SCDs for DVT prophylaxis. Upon discharge, patient's care will be returned to her PCP, Dr. Paz. Impression and plan per Dr. Zamorano. Small bowel obstruction -Reading on CT scan this morning shows acute high-grade or complete small bowel obstruction which appears to be due to a region of mesenteric twisting in the central upper pelvis with recommendation for emergent surgical consultation. I did call and discuss history, CT report, lab findings, and exam findings with Dr. Moise and he stated he would be in to see the patient. Continue with current treatment for now with IV fluids, IV morphine, NG placement, nothing by mouth status. Continue Protonix iv ordered for history of GERD and duodenal ulcers Regarding history of chronic pain, morphine has been ordered as needed for pain Regarding history of hypertension, lisinopril is on hold. We'll monitor BP and give iv medication if needed. Regarding history of gastroparesis, Reglan was ordered Regarding history of bipolar disorder and PTSD-the patient's psychiatric medications are on hold including olanzapine, clonazepam, bupropion and Cogentin. Will give lorazepam IV as needed. At this time, patient is not exhibiting any psychiatric difficulties. We'll consult psychiatry if she develops mood difficulties. 02/24/18 POD #1 - S/P exploratory laparotomy with release of small bowel obstruction secondary to internal hernia and adhesiolysis, Dr. Moise, 02/23/18. Continue NG tube with suction and surgical cares per Dr. Moise. Continue toradol and morphine as needed for pain control. Morphine BARREL POLISHER available. Zofran and reglan as needed for nausea. Continue NS 100/hr for gentle hydration while patient remains NPO. Continue to monitor urinary output and daily weight closely for signs of fluid overload. Echocardiogram in 2010 was unremarkable. Continue to hold oral home medications as patient is NPO. Will resume as soon as diet is advanced per surgery. Blood pressure has been slightly elevated - systolic 150s. Home lisinopril on hold Continue to monitor blood pressure closely. Significant psychiatric history. Monitor closely for signs of agitation, worsening depression or anxiety as home medications remain on hold. Ativan 0.5mg Q6H PRN anxiety. Protonix 40mg IV BID for history of GERD, gastritis, ulcerations and Reyes esophagus. SCDs and Lovenox for DVT prophylaxis. Recheck labs in AM to monitor blood counts, electrolytes and renal function. Recommend initiation of ambulation and/or PT as soon as surgery feels patient is able to maintain strength and functional abilities. 02/25/18 POD #2 Patient continues to complain of severe pain though appears in no acute distress. Consider weaning BARREL POLISHER pump with PRN morphine and scheduled toradol. Nursing reports that patient has been refusing to ambulate. Discussed importance of ambulation with patient and she states she is willing to walk more. Will consult PT for further evaluation and treatment plan to encourage mobility. Zofran and Reglan as needed for nausea. Hypoglycemia this AM (Glu 52). No history of diabetes or hypoglycemia. IV fluids changed to D5 1/2 NS with KCl at 100 cc/hr with improvement. Monitor blood sugars closely. Patient has been NPO since 02/22/18. Continue to monitor urinary output and daily weight closely for signs of fluid overload. Echocardiogram in 2010 was unremarkable. Continue to hold oral home medications as patient is NPO. Will resume as soon as diet is advanced per surgery and NG is removed. Blood pressure remains elevated. Home lisinopril on hold Continue to monitor blood pressure closely. Hydralazine 5mg IV Q6 PRN SBP >160. Significant psychiatric history. Monitor closely for signs of agitation, worsening depression or anxiety as home medications remain on hold. Ativan 0.5mg Q6H PRN anxiety. Protonix 40mg IV BID for history of GERD, gastritis, ulcerations and Reyes esophagus. 02/26/18 POD #3 NG tube has been clamped since yesterday. Will allow sips and chips and resume her home lisinopril and psych meds. Further diet adv orders per surgery. Change reglan to PRN due to interaction with wellbutrin. DC morphine pump and change Toradol to PRN. Continue PRN morphine IV order. Continues on D5 1/2NS with KCl - sugars reviewed and are ok. Blood pressure remains elevated. Home lisinopril can be resumed given she has tolerated having the NG tube clamped. Hydralazine 5mg IV Q6 PRN SBP >160. 02/27/18 POD #4 Overall, patient is making slow gains. Tolerated clear liquids and has advanced to full liquids without incident. Further diet orders per surgery. Home lisinopril and psych meds resumed. BARREL POLISHER pump discontinued with PRN medications available. Blood sugars improved and remained stable. D5 1/2 NS discontinued today. Will continue to monitor for hypoglycemia. Blood pressure improved with resuming of home lisinopril. Continue to monitor. Hydralazine 5mg IV Q6 PRN SBP >160. Continue Protonix 40mg IV BID for history of GERD, gastritis, ulcerations and Reyes esophagus. Hypokalemia and hypomag noted this AM. Will give KCl 20 mEq po x 1 dose now and Mag IV x 2 grams. Recheck labs in AM to monitor blood counts, electrolytes and renal function. Anticipate discharge in near future.
[2018-02-27 15:40] VITALS: BP 150/75; PULSE 103; RESP 24; TEMP 97.5; O2SAT 90
[2018-02-27 18:32] VITALS: BMI 24.1
--- NOTE | 2018-02-27 21:49 | Discharge Summary ---
Discharge Information Date of admission: 02/22/18 19:57 Anticipated date of discharge: 02/27/18 Attending Physician: Jessica Cha MD Primary care physician: Franklyn Bolton MD Consults: Consulting Provider: [place] Reason For Exam: SBO - Discharge Diagnosis (1) SBO (small bowel obstruction) Status: Acute Small bowel obstruction-acute Internal hernia Acute generalized abdominal pain with nausea. Leukocytosis, not present on admission. Hypercalcemia, present on admission - resolved. Anemia, chronic normocytic. Hypertension. GERD. Barretts esophagus. Gastroparesis, severe. History of duodenal ulceration. Osteoarthritis. Bipolar, mixed. Depression. PTSD. Pancreatic pseudocyst Hypomagnesemia, not POA, resolved - Procedures Procedures: S/P exploratory laparotomy with release of small bowel obstruction secondary to internal hernia and adhesiolysis, Dr. Moise, 02/23/18. - Laboratory Labs: On admission WBC 10.8, hemoglobin 13.0; creatinine 1.3, alk phosphatase 135 with remainder of liver enzymes unremarkable. Lipase 24. 02/26/18 04:21 02/27/18 04:40 Magnesium 1.2 on the date of discharge improving to 2.0 following replacement - Radiology Radiology: CT abdomen/pelvis with contrast on 02/22/18: Residual or recurrent airspace opacity in the right lower lobe. Gas granuloma in the right middle lobe. Hiatal hernia. The liver is unremarkable. Gallbladder is surgically absent. Spleen is normal. Interval severe atrophy of the pancreatic body and tail with a 4.5 cm pseudocyst in the region of the splenic hilum. The adrenal glands are unremarkable. Kidneys are grossly normal. There are dilated fluid-filled small bowel loops in the abdomen and pelvis measuring up to 3.6 cm in diameter with transition to decompressed distal small bowel with an area of mesenteric swirling seen in the central pelvis on axial image #57. This appears to be the site of obstruction. Moderate to large amount of stool in the colon. No free air. No significant free pelvic fluid. Bony structures show no acute changes. Impression: 1. Acute high-grade or complete small bowel obstruction which appears to be due to a region of mesenteric twisting in the central upper pelvis. This could be due to adhesion or internal hernia. Emergent surgical consultation is recommended. 2. Interval severe pancreatic atrophy following the patient's prior episode of acute pancreatitis with a 4.5 cm pseudocyst in the left upper quadrant ----- KUBs obtained 02/23/18 evaluating NG placement/directing repositioning NG. - Pathology Soft tissue biopsies obtained surgically revealed benign fibrofatty tissue with minimal chronic inflammation. History of Present Illness HPI: Reva Brooke is a 67-year-old patient of Dr. Paz who presented to [facility] ED on the evening of 02/22/18 for evaluation of severe abdominal pain. She reports that on around 02/19/18 she began having generalized abdominal pain and bloating which progressively got worse to the point where she was unable to stand up. She also reported increasing nausea and dizziness with standing. She denies any known fevers, chills, chest pain, shortness of breath, abdominal pain, vomiting, dysuria or diarrhea. She has a history of chronic constipation, gastroparesis and recent bowel resection in 10/2017 because her "bowels were twisted". Unfortunately, she is unable to provide much information regarding her bowel resection as it occurred while she was travelling and was hospitalized in [place] at an unknown location. Upon arrival to the emergency department, labs and imaging were obtained. Labs were relatively unremarkable with the exception of slightly elevated SCr at 1.3 and tachycardia, presumed to be secondary to her pain it is improved with IV morphine. CT abdomen/pelvis revealed possible vs. partial small bowel obstruction as well as made note of a cyst on the pancreatic tail most likely a pseudocyst from her history of pancreatitis. Lipase was normal as were LFTs and UA. She states that she takes miralax daily and her last BM was 2 days ago and normal for her. No melena or hematochezia. In addition to her extensive GI history including multiple prior endoscopies for Barretts esophagus and a family history of colon cancer, she has been noted to have gastritis, hemorrhoids and prior duodenal ulcerations as well as gastroparesis with reported gastric emptying of only 4% as of 2014. She was seen and evaluated by ARIA Bautista in [place], in 03/2017 but has not follow up as she did not care for his disposition. She also has an extensive psychiatric history including multiple psychiatric admission for depression, bipolar, anxiety and suicidal ideations with prior suicide attempt including intentional medication overdose in 2002. She denies any current suicidal ideations or plan. Due to her partial vs. possible small bowel obstruction, the hospitalist service was consulted and she was admitted into inpatient status for further evaluation, surgical consultation, close monitoring and IV hydration with IV pain control. Her length of stay is expected to exceed more than 2 over nights. At the time of admissions, her current home medications were unable to be verified and are currently pending verification. While in the ED, she was strongly encouraged and refused placement of an NG tube. Patient is initially seen and evaluated by tele- hospitalist. Reva is seen this morning in conjunction with nursing in her room, while resting in bed. She awakens easily with soft voice stimuli and is stunned to see that she slept so well. She reports that her pain is improved as compared to when she was admitted and denies any current nausea or other complaints. After further discussion, she is willing to attempt placement of a NG tube for treatment of her small bowel obstruction. Labs today remained unremarkable with improvement in her renal function following initiation of IV fluids. Objective Vital signs: Temperature 97.5 F 02/27/18 15:38 Pulse Rate 103 H 02/27/18 15:38 Respiratory Rate 24 02/27/18 15:38 Blood Pressure 150/75 H 02/27/18 15:38 Pulse Oximetry 90-94% RA 02/27/18 15:38 NAD, alert Respirations nonlabored Abdomen soft, minimally tender to palpation, active bowel sounds Rhythm: Normal Sinus Rhythm Height/Weight/BMI: Height 1.6 m Weight 61.9 kg Body Mass Index 24.1 Hospital Course This is a general summary of the patient's hospital course. For more details refer to the complete medical record. Hospital course: 02/22/18 Patient admitted after evaluation in the emergency room with abdominal pain and possible bowel obstruction. Nothing by mouth, IV fluids initiated; morphine for pain control. No evidence of acute pancreatitis. Patient refused NG placement. Surgery consulted. 02/23/18 Small bowel obstruction -Reading on CT scan this morning shows acute high-grade or complete small bowel obstruction which appears to be due to a region of mesenteric twisting in the central upper pelvis with recommendation for emergent surgical consultation. I did call and discuss history, CT report, lab findings, and exam findings with Dr. Moise and he stated he would be in to see the patient. Continue with current treatment for now with IV fluids, IV morphine, NG placement, nothing by mouth status. Continue Protonix iv ordered for history of GERD and duodenal ulcers Regarding history of chronic pain, morphine has been ordered as needed for pain Regarding history of hypertension, lisinopril is on hold. We'll monitor BP and give iv medication if needed. Regarding history of gastroparesis, Reglan was ordered Regarding history of bipolar disorder and PTSD-the patient's psychiatric medications are on hold including olanzapine, clonazepam, bupropion and Cogentin. Will give lorazepam IV as needed. At this time, patient is not exhibiting any psychiatric difficulties. We'll consult psychiatry if she develops mood difficulties. 02/24/18 POD #1 S/P exploratory laparotomy with release of small bowel obstruction secondary to internal hernia and adhesiolysis, Dr. Moise, 02/23/18. Continue NG tube with suction and surgical cares per Dr. Moise. Continue toradol and morphine as needed for pain control. Morphine ASSOCIATE [employer] PHYSICIAN available. Zofran and reglan as needed for nausea. Continue NS 100/hr for gentle hydration while patient remains NPO. Continue to monitor urinary output and daily weight closely for signs of fluid overload. Echocardiogram in 2010 was unremarkable. Continue to hold oral home medications as patient is NPO. Will resume as soon as diet is advanced per surgery. Blood pressure has been slightly elevated - systolic 150s. Home lisinopril on hold Continue to monitor blood pressure closely. Significant psychiatric history. Monitor closely for signs of agitation, worsening depression or anxiety as home medications remain on hold. Ativan 0.5mg Q6H PRN anxiety. Protonix 40mg IV BID for history of GERD, gastritis, ulcerations and Reyes esophagus. Recheck labs in AM to monitor blood counts, electrolytes and renal function. Recommend initiation of ambulation and/or PT as soon as surgery feels patient is able to maintain strength and functional abilities. 02/25/18 POD #2 Patient continues to complain of severe pain though appears in no acute distress. Consider weaning ASSOCIATE TEAM PHYSICIAN pump with PRN morphine and scheduled toradol. Nursing reports that patient has been refusing to ambulate. Discussed importance of ambulation with patient and she states she is willing to walk more. Will consult PT for further evaluation and treatment plan to encourage mobility. Zofran and Reglan as needed for nausea. Hypoglycemia this AM (Glu 52). No history of diabetes or hypoglycemia. IV fluids changed to D5 1/2 NS with KCl at 100 cc/hr with improvement. Monitor blood sugars closely. Patient has been NPO since 02/22/18. Continue to monitor urinary output and daily weight closely for signs of fluid overload. Echocardiogram in 2010 was unremarkable. Continue to hold oral home medications as patient is NPO. Will resume as soon as diet is advanced per surgery and NG is removed. Blood pressure remains elevated. Home lisinopril on hold Continue to monitor blood pressure closely. Hydralazine 5mg IV Q6 PRN SBP >160. Significant psychiatric history. Monitor closely for signs of agitation, worsening depression or anxiety as home medications remain on hold. Ativan 0.5mg Q6H PRN anxiety. Protonix 40mg IV BID for history of GERD, gastritis, ulcerations and Reyes esophagus. 02/26/18 POD #3 NG tube has been clamped since yesterday. Will allow sips and chips and resume her home lisinopril and psych meds. Further diet adv orders per surgery. Change reglan to PRN due to interaction with wellbutrin. DC morphine pump and change Toradol to PRN. Continue PRN morphine IV order. Continues on D5 1/2NS with KCl - sugars reviewed and are ok. Blood pressure remains elevated. Home lisinopril can be resumed given she has tolerated having the NG tube clamped. Hydralazine 5mg IV Q6 PRN SBP >160. 02/27/18 POD #4 Overall, patient is making good progress. Tolerated clear liquids and has advanced to full liquids without incident; advanced to regular diet at lunch today. IV fluids discontinued due to good intake orally. Dr. Valenzuela reevaluated later in the day and felt patient was stable for discharge given good tolerance of diet. Home lisinopril and psych meds resumed. ASSOCIATE TE[employer] PHYSICIAN pump discontinued with PRN medications available. Blood sugars improved and remained stable. Blood pressure improved with resuming of home lisinopril. Resume omeprazole 20 mg BID for history of GERD, gastritis, ulcerations and Reyes esophagus in conjunction with Carafate daily at bedtime. Magnesium level 1.2 this morning improving to 2.0 after IV replacement, supplemental potassium given for potassium of 3.5. Do not anticipate ongoing difficulty with electrolytes following discontinuation of IV fluids although chronic PPI may cause magnesium wasting and should be reassessed as an outpatient. Stable for discharge at this time, outpatient follow-up with Dr. Moise or Dr. Valenzuela within 2 weeks of surgery for wound check and staple removal. Follow-up with PCP for blood pressure check and reassessment of electrolytes including magnesium and approximately 1 week. Time spent with patient: discharge greater than 30 minutes Resuscitation Status: Full Code Discharge Plan - Discharge Disposition Discharge Date: 02/27/18 Disposition: 01 Discharged Home, Self-Care *Condition: Stable Reason For Visit (Visit label in EMR): SBO - Discharge Medications *Discharge Medications: New Omeprazole 1 tab PO ACBID #60 tab Continue Calcium 600 + D [Caltrate + D] 1 tab PO DAILY Promethazine Tab [Phenergan Tab] 25 mg PO Q6H PRN PRN Reason: Nausea Celecoxib 200 mg PO DAILY Memantine HCl 5 mg PO BID buPROPion HCl [Bupropion HCl Sr] 150 mg PO BID Vit C/E/Zn/Coppr/Lutein/Zeaxan [Preservision Areds 2 Softgel] 1 each PO DAILY Vits #93/Iron Fum/FA [ Formula Tablet] 1 each PO DAILY Sucralfate [Carafate] 1 gm PO HS Lisinopril [Prinivil] 10 mg PO DAILY clonazePAM [Clonazepam] 0.5 mg PO QID PRN PRN Reason: Anxiety Aspirin [Adult Aspirin Regimen] 81 mg PO DAILY Benztropine [Cogentin] 1 mg PO HS PRN PRN Reason: Restlessness Hydrocodone/APAP 10/325 [Milton 10/325] 1 tab PO Q6H PRN PRN Reason: Pain OLANZapine [Olanzapine] 30 mg PO HS zaleplon 10 mg capsule 10 mg PO HS 30 Days #30 cap Discontinued Ibuprofen 400 mg PO Q4H PRN PRN Reason: Pain - Discharge Packet/Instructions *Diet: Regular *Activity: As tolerate *Pain Management/Treatment: Milton as previously prescribed by your pain management doctor (consider trying half a tablet), Celebrex as previously prescribed, Tylenol when something additional as needed. *Wound Care: Watch abdominal incision for any evidence of redness or drainage- notify surgical office if any occurs. Incision can be open to the air. Additional Instructions: Schedule an office appointment with Dr. Moise (or Dr. Valenzuela if Dr. Moise is not back) within 2 weeks of surgery for wound check and have homero removed. To have electrolytes and magnesium rechecked and for blood pressure check. *Expected Signs/Symptoms: Mild abdominal discomfort *Notify Physician if: Nausea or vomiting, redness or drainage from your incision , fevers, or bleeding from your incision. *During Business Hours Contact: Dr. Bolton or Dr. Moise *After Business Hours Contact: Call [facility] at [phone] and ask that the on-call physician be paged *Pending Lab/Results: No Pending Lab - Referrals/Follow Up *Referrals/Follow Up: Franklyn Bolton MD [Primary Care Provider] - 1 Week [place] Moise MD [Physician] - (Schedule appointment prior to 03/10 for wound check-Dr. Moise is not back schedule appointment with Dr. Valenzuela) - Patient Handouts Patient Handouts: Bowel Obstruction (GEN), Inguinal Hernia Repair (GEN) - Dismissal Complete Discharge Instructions are:: Complete Physician Narrative - Narrative Attestation Narrative: Date: 02/27/18 Time: 2144
--- NOTE | 2018-02-28 12:06 | Progress Note ---
DATE 02/27/2018 FINDINGS Mrs. Brooke was seen earlier this evening on rounds. She states that she has been tolerating a regular diet. She denies any element of nausea. She has had a bowel movement today per her report. OBJECTIVE VITALS: Afebrile. Normotensive. Please refer to EMR. ABDOMEN: Soft, nontender. Incision is clean, dry and intact. ASSESSMENT 67-year-old female status post exploratory laparotomy with lysis of adhesions secondary to small bowel obstruction. Patient doing well. PLAN DC to home. I informed the patient that at this point time, I do believe that she could be safely discharged to home given the fact that she is tolerating a regular diet and her bowel activity has resumed. I would recommend the patient follow up at about two weeks out from her surgery for removal of her homero. The patient can either follow up with me if Dr. Moise is still out on vacation. Patient should contact the office if any concerns should arise prior to her postop visit. MER
== END 2018-02-27 18:45 | disposition home or self-care (01) | DRG 336 ==
LOC: ED 16:46 → SUATTDRO 19:57 → EDHOLD 19:57 → SRG 21:00
PROVIDERS: ADMIT Internal Medicine; ATTEND Internal Medicine